=== PATIENT | male | born 1940 | race Caucasian/White ===

== ENCOUNTER 2016-08-25 10:45 | Inpatient (IN) | payer OTHER ==
[~2016-08-25] VITALS: Ht 167.6 cm; Wt 73.2 kg
[~2016-08-25 10:45] MED LIST: ADVAIR DISKUS 21 DSK INH; ALBUTEROL0.09 MG/A1 INH; ALBUTEROL2.5 MG/3 M INH/SOL; ALLOPURINOL300 MG PO; ATROVENT 0.02%2.5 ML INH; AUGMENTIN 875875 MG PO; AZITHROMYCIN250 M1 PO; BACTRIM DS 8001 TAB PO; BUFFERIN LOW DO81 MG PO; DIFLUCAN100 MG PO; DUONEB 3 MG/3 ML3 ML INH/SOL; FLOMAX(MONOGRA0.4 MG PO; FUROSEMIDE20 MG PO; GOOD SENSE ASP325 MG PO; IPRATROPIUM BR2.5 ML INH; LASIX40 M1 PO; LASIX40 MG PO; LEXAPRO20 M1 PO; LISINOPRIL10 MG PO; MELOXICAM15 MG PO; MULTIVITAMIN1 TAB PO; NYSTATIN100000 U/G TOP; OXYCODONE HCL5 M1 PO; OXYCODONE HYDRO10 M1 PO; PAXIL30 MG PO; POTASSIUM CHLO10 ME2 PO; PREDNISONE10 M2 PO; PROS5 PO; SERTRALINE HYD100 MG PO; TIZANIDINE4 MG PO; TRAZODONE HCL50 M1 PO; XALATAN 0.50 GTT/1 B OPH
--- NOTE | 2016-08-25 11:04 | ED DYSPNEA/ASTHMA COMPLAINT ---
History of Present Illness General Chief Complaint: General Adult Stated Complaint: SOB,INCONTINENCE Source: patient, family, old records Exam Limitations: no limitations Vital Signs & Intake/Output Vital Signs & Intake/Output Vital Signs Date Time Temp Pulse Resp B/P Pulse O2 O2 Flow FiO2 Ox Delivery Rate 08/29 0634 98.1 83 22 114/60 92 Nasal Cannula 08/29 0000 Nasal 3.0L Cannula 08/28 2225 97.8 90 24 120/60 94 Nasal Cannula 08/28 2114 58 96 08/28 202 92 104/60 08/28 2009 94 Nasal 2.0L Cannula 08/28 1525 97.7 90 24 100/60 97 08/28 1023 93 Nasal 2.0L Cannula ED Intake and Output 08/29 0000 08/28 1200 Intake Total 1190 120 Output Total 980 650 Balance 210 -530 Intake, Oral 1190 120 Number 1 Bowel Movements Output, Urine 980 650 Patient 216 lb Weight Allergies Coded Allergies: Tetanus Vaccines and Toxoid (ANAPHYLAXIS 07/13/16) Horse/Equine Containing Products (Mild, ANAPHYLAXIS 07/13/16) THEY USED THIS TO MAKE PCN YEARS AGO, BUT THEY DO NOT USE THIS ANYMORE. Reconcile Medications Albuterol Sulfate 2.5 MG/3 ML (0.083 %) VIAL.NEB 1 Vial INH/MELANIA TID PRN COPD (Reported) Allopurinol 300 MG TAB 1 TAB PO DAILY GOUT (Reported) Aspirin (Children's Aspirin) 81 MG TAB 1 TAB PO DAILY blood thinner Escitalopram Oxalate (Lexapro) 20 MG TABLET 1 TAB PO DAILY Depression ( Reported) Finasteride (Propecia) 5 MG TAB 5 MG PO AT BEDTIME BPH (Reported) FLUTICASONE/SALMETEROL (Advair 250-50 Diskus) 1 DSK DSK 1 PUFF INH BID COPD ( Reported) Furosemide (Lasix) 40 MG TABLET 1 TAB PO BID CHF (Reported) Meloxicam 15 MG TAB 1 TAB PO DAILY ANTI-INFLAMMATORY (Reported) Mometasone/Formoterol (Dulera 200 Mcg/5 Mcg Inhaler) 200 MCG-5 MCG/ACTUATION HFA.AER.AD 2 PUF INH BID BREATHING PROBLEMS (Reported) Multivitamin (Multiple Vitamins) (Unknown Strength) TAB 1 TAB PO DAILY SUPPLEMENT (Reported) Oxycodone HCl 5 MG TABLET 1 TAB PO Q6 PRN Back pain (Reported) Potassium Chloride [address] 20 MEQ PO DAILY SUPPLEMENT (Reported) Tamsulosin Hydrochloride (Flomax) 0.4 MG CAP 1 CAP PO AT BEDTIME PROSTATE ( Reported) Trazodone HCl 50 MG TABLET 1 TAB PO QPM PRN Insomnia (Reported) Triage Note: PT C/O PRODUCTIVE COUGH X 2 WEEKS, HX OF NON HODGKINS LYMPHOMA. PT C/O SOB AND INCONTINENCE OF URINE X 4 DAYS Triage Nurses Notes Reviewed? yes Onset: Gradual Duration: week(s): (1) Timing: recent history Severity: severe Activities at Onset: none HPI: 76 year old male with history COPD on home oxygen 2 L, afib, chf who presents to the ER with chief complaint of cough for the past week. According to his the grandchild was sick with cold and her after he developed same symptoms. No high fever or chills. No chest pain. Progressive worsening swelling of his lower extremities which started to weep this morning. He has been compliant with 40 mg of Lasix twice a day. He is urinating frequently is now incontinent of urine. She states he was too weak to go to the doctor's office and they brought him here. She states that he is also been confused seeing things that he shouldn't be. He has been noncompliant with his CPAP at night for the past few days. Past History Travel History Traveled to [place] past 21 day No Medical History Any Pertinent Medical History? see below for history Neurological: NONE EENT: glaucoma, macular degeneration Cardiovascular: AFIB, CHF, hypertension Respiratory: COPD, obstructive sleep apnea, USES CPAP Gastrointestinal: SPLENOMEGALY Hepatic: NONE Renal: NONE Musculoskeletal: sciatica, ARTHRITIS Psychiatric: NONE Endocrine: NONE Blood Disorders: NONE Cancer(s): non-hodgkin lymphoma FILM PAINTER/Reproductive: NONE History of MRSA: No History of VRE: No History of CDIFF: No Surgical History Surgical History: cholecystectomy, knee replacement, GASTRIC BYPASS SURGERY Psychosocial History Who do you live with Spouse Services at Home Oxygen What is your primary language [place] Tobacco Use: Quit >30 days ago ETOH Use: denies use Illicit Drug Use: denies illicit drug use Family History Family History, If Any: MOTHER FH: brain cancer Hx Contributory? No Review of Systems Review of Systems Constitutional: Reports: malaise, weakness. Denies: chills, fever. EENTM: Reports: no symptoms. Respiratory: Reports: cough, short of breath. Denies: sputum production. Cardiovascular: Reports: peripheral edema. Denies: chest pain. GI: Denies: abdominal pain. Genitourinary: Reports: no symptoms. Musculoskeletal: Reports: no symptoms. Skin: Reports: no symptoms. Neurological/Psychological: Reports: see HPI (hallucination x 3 weeks), anxiety. Hematologic/Endocrine: Denies: bruising, bleeding, polyuria, polydipsia. Immunologic/Allergic: Denies: splenectomy. All Other Systems: Reviewed and Negative Physical Exam Physical Exam General Appearance: alert, awake, anxious, moderate distress, thin Eyes: Bilateral: PERRL, EOMI. Ears, Nose, Throat: normal pharynx Neck: normal inspection, supple, full range of motion Respiratory: decreased breath sounds, wheezing, respiratory distress Cardiovascular: regular rate/rhythm Peripheral Pulses: 2+ radial (R), 2+ radial (L) Gastrointestinal: SOFT, SWOLLEN Extremities: 3+ BILATERAL PITTING EDEMA, WEEPING Neurologic/Psych: awake, alert, ORIENTED X 2 Skin: intact, normal color, warm/dry Core Measures ACS in differential dx? No Severe Sepsis Present: No Septic Shock Present: No Progress Differential Diagnosis: CHF, COPD, pneumonia, INFLUENZA Plan of Care: Orders Procedure Date/time Status CBC WITHOUT DIFFERENTIAL 08/29 0600 Active RT: Reevaluation 08/28 2130 Active CONTIN. POSITIVE AIRWAY PRESS 08/28 2115 Complete THERAPIST ORDERS 08/28 2009 Complete Therapeutic Exercise 08/28 UNK Complete Gait Training 08/28 UNK Complete Current Medications Sig/Sherron Start time Last Medication Dose Stop Time Status Admin Acetaminophen 650 MG Q4P PRN 08/25 1630 AC (Tylenol) Diclofenac Sodium 1 VICENTA DAILY PRN 08/25 1445 AC (Voltaren 1% Gel) Laboratory Tests 08/29/16 0653: CBC w Diff MAN DIFF ORDERED, WBC Pending, RBC Pending, Hgb Pending, Hct Pending, MCV Pending, MCH Pending, RDW Pending, Plt Count Pending, MPV Pending, Segmented Neutrophils Pending, PUBS MCHC Pending Diagnostic Imaging: Viewed by Me: Radiology Read. Discussed w/RAD: Radiology Read. CXR Impression: PATIENT: GARTH HE PRESENT AGE: 76 PATIENT ACCOUNT NO: [id number] : 41 LOCATION: [facility] ORDERING PHYSICIAN: ANAMARIA MERINO MD SERVICE DATE: 08/25/16 EXAM TYPE: RAD - XRY-PORTABLE CHEST XRAY EXAMINATION: XR PORTABLE CHEST CLINICAL INFORMATION: Cough and shortness of breath. COMPARISON: CXR from 06/14/2016 and 07/14/2016 TECHNIQUE: Portable view of the chest was obtained. FINDINGS: Again noted is a large cardiac silhouette and large central pulmonary vessels. No evidence of interlobular septal thickening, acute pulmonary consolidation or pleural effusion. There is linear opacity of scarring in the right upper lobe. Probable discoid atelectasis in the inferior lingula, as well. The diaphragms remain well defined. There is atherosclerotic calcification of the aorta. There is osteoarthritic deformity of both glenohumeral joints. IMPRESSION: 1. Cardiomegaly and pulmonary vascular congestion, similar in appearance compared to prior exams. 2. There is no overt pneumonia or pleural effusion observed on this single view exam. DICTATED BY: GE SHER MD DATE/TIME DICTATED:1140 PARTS AND SERVICE MANAGER:ULISES DATE/TIME TRANSCRIBED:08/25/161140 CONFIDENTIAL, DO NOT COPY WITHOUT APPROPRIATE AUTHORIZATION. <Electronically signed in Other Vendor System> SIGNED BY: GE SHER MD 08/25/16 1150 Initial ED EKG: NSR Rhythm Strip: normal sinus rhythm Departure Departure Time of Disposition: 1238 Disposition: STILL A PATIENT Condition: Stable Clinical Impression Primary Impression: CHF (congestive heart failure) Secondary Impressions: Dependent edema Referrals: DAYANARA LOVE DO (PCP/Family) Departure Forms: Customer Survey General Discharge Information Admission Note Spoke With: JUNO BASHIR MD Documentation of Exam: Documentation of any treatments & extenuating circumstances including Concerns Regarding Discharge (functional status, medication knowledge or non-compliance, living conditions, etc.) that warrant an admission rather than observation: [TRC /NEBS, NASAL OXYGEN, IV LASIX, CARDIOLOGY EVALUATION, MONITOR I/O, LEG ELEVATION ] Critical Care Note Critical Care Note Critical Care Time: 30-74 min
[2016-08-25] MEDS ORDERED: DULERA 200 MCG/13 GM INH (11:26)
--- NOTE | 2016-08-25 11:50 | RADIOLOGY REPORT ---
EXAMINATION: XR PORTABLE CHEST CLINICAL INFORMATION: Cough and shortness of breath. COMPARISON: CXR from 06/14/2016 and 07/14/2016 TECHNIQUE: Portable view of the chest was obtained. FINDINGS: Again noted is a large cardiac silhouette and large central pulmonary vessels. No evidence of interlobular septal thickening, acute pulmonary consolidation or pleural effusion. There is linear opacity of scarring in the right upper lobe. Probable discoid atelectasis in the inferior lingula, as well. The diaphragms remain well defined. There is atherosclerotic calcification of the aorta. There is osteoarthritic deformity of both glenohumeral joints. IMPRESSION: 1. Cardiomegaly and pulmonary vascular congestion, similar in appearance compared to prior exams. 2. There is no overt pneumonia or pleural effusion observed on this single view exam.
[2016-08-25 12:05] LABS: HEMATOCRIT 23.7 % (42-52); MEAN CORPUSCULAR HGB 31.2 PG (27.0-31.0); MEAN CORPUSCULAR HGB CONC 32.4 G/DL (33.0-37.0); MEAN CORPUSCULAR VOLUME 96.4 FL (80.0-94.0); MEAN PLATELET VOLUME 8.1 FL (7.4-10.4); RBC DISTRIBUTION WIDTH 24.4 % (11.5-14.5); RED BLOOD CELL CT 2.46 /CUMM (4.70-6.10)
[2016-08-25 12:19] LABS: PT 13.9 SEC (9.4-12.5); PTT 36 SEC (25-37)
[2016-08-25 12:49] LABS: PLATELET COUNT 68 /CUMM (130-400); WHITE BLOOD CELL COUNT 128.5 /CUMM (4.8-10.8)
--- NOTE | 2016-08-25 13:03 | History & Physical ---
MAXIMILIANO DORANTES 08/25/16 1303: General Information and HPI MD Statement: I have seen and personally examined GARTH THOMAS and documented this H&P. The patient is a 76 year old M who presented with a patient stated chief complaint of [worsening shortness of breath and swelling of bilateral lower extremities]. Source of Information: patient, family, old records Exam Limitations: no limitations History of Present Illness: Mr. 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 Presenting with (CCx) worsening dyspnea. His dyspnea is not associated with cough, but he has frequent heaves. Per , he was at his normal state of health up until 7-10 days ago, when he, supposedly, from his sick grand kid (common cold). His symptoms began with cough and increased swelling in the bilateral legs, over the span of time; he became dyspneic, worsening of [place]. Patient had recent sick contact but no travel. He reports compliance with all of his home medications. Uses his home oxygen and inhalers regularly, but for the past week he has been using his albuterol more often and his O2 demand went up to two liters. Denies fever, chills, headache, dizziness, lightheadedness, chest pain, palpitations, abdominal pain, nausea, vomiting, diarrhea and constipation. Another issue that was brought up by his was his incontinence that started about 3 days ago, patient did not develop any focal sensory or motor deficit. He has chronic pain syndrome and his pain medications were recently tailored according to his respiratory status to his current regimen. Allergies/Medications Allergies: Coded Allergies: Tetanus Vaccines and Toxoid (ANAPHYLAXIS 07/13/16) Horse/Equine Containing Products (Mild, ANAPHYLAXIS 07/13/16) THEY USED THIS TO MAKE PCN YEARS AGO, BUT THEY DO NOT USE THIS ANYMORE. Home Med list Albuterol Sulfate 2.5 MG/3 ML (0.083 %) VIAL.NEB 1 Vial INH/MELANIA TID PRN COPD (Reported) Allopurinol 300 MG TAB 1 TAB PO DAILY GOUT (Reported) Aspirin (Children's Aspirin) 81 MG TAB 1 TAB PO DAILY blood thinner Escitalopram Oxalate (Lexapro) 20 MG TABLET 1 TAB PO DAILY Depression ( Reported) Finasteride (Propecia) 5 MG TAB 5 MG PO AT BEDTIME BPH (Reported) FLUTICASONE/SALMETEROL (Advair 250-50 Diskus) 1 DSK DSK 1 PUFF INH BID COPD ( Reported) Furosemide (Lasix) 40 MG TABLET 1 TAB PO BID CHF (Reported) Meloxicam 15 MG TAB 1 TAB PO DAILY ANTI-INFLAMMATORY (Reported) Mometasone/Formoterol (Dulera 200 Mcg/5 Mcg Inhaler) 200 MCG-5 MCG/ACTUATION HFA.AER.AD 2 PUF INH BID BREATHING PROBLEMS (Reported) Multivitamin (Multiple Vitamins) (Unknown Strength) TAB 1 TAB PO DAILY SUPPLEMENT (Reported) Oxycodone HCl 5 MG TABLET 1 TAB PO Q6 PRN Back pain (Reported) Potassium Chloride [address] 20 MEQ PO DAILY SUPPLEMENT (Reported) Tamsulosin Hydrochloride (Flomax) 0.4 MG CAP 1 CAP PO AT BEDTIME PROSTATE ( Reported) Trazodone HCl 50 MG TABLET 1 TAB PO QPM PRN Insomnia (Reported) Past History Travel History Traveled to [place] past 21 day No Medical History Neurological: NONE EENT: glaucoma, macular degeneration Cardiovascular: AFIB, CHF, hypertension Respiratory: COPD, obstructive sleep apnea, USES CPAP Gastrointestinal: SPLENOMEGALY Hepatic: NONE Renal: NONE Musculoskeletal: sciatica, ARTHRITIS Psychiatric: NONE Endocrine: NONE Blood Disorders: NONE Cancer(s): non-hodgkin lymphoma 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 spouse Services at Home: Oxygen ETOH Use: denies use Illicit Drug Use: denies illicit drug use Living Will? yes Functional Ability ADLs Needs Assist: dressing, eating, toileting, bathing. Ambulation: walker IADLs Needs Assist: shopping, housework, finances, food prep, telephone, transportation, medication admin. Review of Systems Review of Systems Constitutional: Reports: see HPI, weakness. Denies: chills, diaphoresis, fever, malaise, unexplained weight loss. EENTM: Denies: blurred vision, double vision, visual changes, eye pain, eye drainage, eye tearing, icterus, ear discharge, ear pain, ear redness, hearing changes, nasal congestion, epistaxis, nasal pain, throat pain, throat swelling, mouth pain, tooth pain. Cardiovascular: Reports: see HPI, edema, orthopena, peripheral edema. Denies: chest pain, palpitations, syncope. Respiratory: Reports: cough. Denies: hemoptysis, orthopnea, short of breath, sputum production, stridor, wheezing. GI: Denies: abdominal pain, bloating, constipation, diarrhea, distention, bowel incontinence, melena, nausea, bloody stool, changes in stool, vomiting, steatorrhea. Genitourinary: Reports: see HPI. Denies: no symptoms, discharge, dysuria, frequency, hematuria , hesitation, nocturia, pain, urgency. Musculoskeletal: Reports: back pain. Skin: Reports: see HPI, change in skin color. Neurological/Psychological: Denies: anxiety, ataxia, cognitive dysfunction, confusion, depressed, dementia, emotional problems, headache, numbness, paresthesia, pre-existing deficit, petit mal seizures, tingling, tremors, tonic-clonic seizures, unable to move lower ext , unable to move upper ext, weakness, other. Hematologic/Endocrine: Denies: bruising, bleeding, polyuria, polydipsia, other. Immunologic/Allergic: Denies: splenectomy, HIV/AIDS, lymphadenopathy, other. All Other Systems: Reviewed and Negative Exam & Diagnostic Data Last 24 Hrs of Vital Signs/I&O Vital Signs Date Time Temp Pulse Resp B/P Pulse O2 O2 Flow FiO2 Ox Delivery Rate 08/25 1313 96 Nasal 2.0L Cannula 08/25 1223 98.7 64 18 137/63 93 Nasal 2.0L Cannula 08/25 1142 96 Nasal 2.0L Cannula 08/25 1108 84 110/50 08/25 1049 98.7 73 24 88/43 85 Nasal 2.0L Cannula Intake & Output 08/25 1600 08/25 0800 08/25 0000 Intake Total Output Total 1100 Balance -1100 Output, Urine 1100 Patient 234 lb Weight Physical Exam General Appearance Alert, Oriented X3, Cooperative, Mild Distress Skin No Breakdown, venous status changes in bilateral lower extremities HEENT mucous membranes are dry, JVD Neck Supple, No JVD, JVD Lymphatic Axillary nl, Cervical nl Cardiovascular No Murmurs, Gallops, irregularly irregular Lungs bibasilar crackles scattered wheezes Abdomen Soft, No Tenderness, No Hepatospenomegaly, he uses splenomegaly up to level of umbilicus Neurological Normal Speech, Normal Tone, Sensation Intact Extremities bilateral 2-3+ symmetric pitting edema low knees, venous status changes in Skin , no erythema no tenderness no warmth Vascular Normal Pulses Body Front and Back (Adult) 1) venous Status changes Last 24 Hrs of Labs/Jordi: Laboratory Tests 08/25/16 1152: Urine Color YEL, Urine Clarity CLEAR, Urine pH 6.0, Ur Specific [place] 1.015, Urine Protein NEG, Urine Ketones NEG, Urine Nitrite NEG, Urine Bilirubin NEG, Urine Urobilinogen 1.0, Ur Leukocyte Esterase NEG, Ur Microscopic SEDIMENT EXAMINED, Urine RBC RARE, Urine WBC RARE, Ur Epithelial Cells RARE, Urine Hemoglobin TRACE-LYSED H, Urine Glucose NEG 08/25/16 1144: Anion Gap 14, Estimated GFR > 60, BUN/Creatinine Ratio 36.7 H, Glucose 123 H, Calcium 8.1 L, Total Bilirubin 1.1, AST 22, ALT 22, Alkaline Phosphatase 78, Troponin I < 0.01, Ais-X-Zfzggdribgy Pept 4200 H, Total Protein 5.6 L, Albumin 2.9 L, Globulin 2.7, Albumin/Globulin Ratio 1.1, PT 13.9 H, INR 1.33 H, APTT 36, CBC w Diff MAN DIFF ORDERED, RBC 2.46 L, MCV 96.4 H, MCH 31.2 H, RDW 24.4 H, MPV 8.1, Segmented Neutrophils 3 L, Lymphocytes 93 H, Monocytes 4, Platelet Estimate DECREASED, Hypochromic-Microcytic 1+, Poikilocytosis 1+, Anisocytosis 1+, Ovalocytes 1+, PUBS MCHC 32.4 L 08/25/16 1110: pH 7.51 H, pCO2 28 L, pO2 74 L, HCO3 22, ABG O2 Sat (Measured) 93.0 L, P-50 (Temp Corrected) N, Carboxyhemoglobin 0.7 L, O2 Concentration % 2LPM, O2 Delivery Method NC, Phlebotomy Draw Site RIGHT RADIAL Microbiology 08/25 1153 BLOOD: Blood Culture - RECD 08/25 1144 BLOOD: Blood Culture - RECD Diagnostic Data EKG Results Atrial fibrillation Irregular rhythm No acute ST-T segment change Low Voltage CXR Results Cardiomegaly and pulmonary edema Assessment/Plan Assessment: 76-year-old gentleman with past medical history significant for COPD with asthmatic features and congestive heart failure was admitted for worsening dyspnea on exertion and increasing peripheral edema. Pertinent data Elevated WBC and low platelet count EKG atrial fibrillation, irregular no acute ST-T segment change first set of troponin negative ProBNP 4200 Sodium 140 potassium 3.6 BUN/creatinine ratio 36.7 sets of troponin negative hemoglobin 7.7 hematocrit 23.7 Previous echo: Left ventricle dilation with ejection fraction of 55-60% no regional wall motion abnormality right ventricle systolic pressure of 50 mm. Physical exam findings: Joce pulmonary rales and crackles, mayer peripheral edema symmetrical to level of knees and elevated JVD. Plan #1 worsening dyspnea on exertion and peripheral edema: Most probably due to congestive heart failure decompensation secondary to upper respiratory tract infection no signs of acute myocardial infarction or pneumonia. Patient also has advanced COPD with asthmatic features. Exacerbation of his COPD secondary to bronchitis possibly contributes to his cardiogenic asthma. * Admit the patient to telemetry * Strict ins and outs control * IV diuresis with Lasix 80 mg daily * Check electrolytes for renal function and potassium * Replete potassium with potassium chloride 20 mEq daily * Off antibiotics; she does not have any findings suggestive of overt infection * Trend troponin * Daily weights * Elevate lower extremities * Diet with fluid restriction 15 mL a day and sodium less than 2 g/day * Started patient on by mouth prednisone 5 mg for 5 days for COPD exacerbation * TRC/nebs [id number] as needed * O2 N/C keep O2% above 90% * Symbicort 2 puff twice a day * Proventil 3 mL 3 times a day as needed * short course steroid with prednisone 40 mg po x 5 days #2 chronic pain syndrome * Tylenol 650 mg every 6 as needed for mild pain * Roxicodone 5 mg every 6 as needed for severe pain * Voltran gel #3 gout * Allopurinol 300 mg by mouth daily #4 BPH and incontinence * Consult urology * Continue Flomax 0.4 mg by mouth at bedtime #5 leukocytosis and thrombocytopenia-in the setting of pericellular leukemia stable #6 atrial fibrillation not on anticoagulation-continue aspirin As Ranked By This Provider Problem List: 1. Dependent edema 2. CHF (congestive heart failure) 3. COPD (chronic obstructive pulmonary disease) 4. Dyspnea 5. CLL (chronic lymphocytic leukemia) 6. BPH (benign prostatic hyperplasia) 7. Edema of left lower extremity 8. Leukocytosis Core Measures/Miscellaneous Acute Coronary Syndrome ACS Diagnosis: No Last Known EF % 55 Cerebrovascular Accident CVA/TIA Diagnosis: No Congestive Heart Failure CHF Diagnosis: Yes Date of most recent Echo: 08/16/15 Last Known EF %: 55 ANTONIO/ARB for EF <40%: No Venous Thromboembolism VTE Risk Factors: Acute medical illness, Age > 40, CHF or Resp failure, Immobility, paresis VTE Prophylaxis Ordered Inpt: Mechanical (ALPS/TEDS) No Mech VTE prophylaxis d/t: LE Edema No VTE Pharm Prophylaxis d/t: No contraindications VTE Diagnosis: No VTE Type: NONE VTE Confirmed by (Test): NONE Severe Sepsis Severe Sepsis Present: No Septic Shock Septic Shock Present: No Miscellaneous Documentation Attending Case Discussed With: HARDEEP CHAUHAN MD Primary Care Physician: DAYANARA LOVE DO Patient sees these Specialists corporate scheduler bioengineer Level of Patient Care: Telemetry Resident Review Statement Resident Statement: examined this patient, discussed with sports intern, agreed with sports intern, discussed with family, reviewed EMR data (avail), discussed with nursing , discussed with case mgmt, reviewed images, amended to note HARDEEP CHAUHAN MD 08/25/16 1521: Attending MD Review Statement Attending Statement Attending MD Statement: examined this patient, discuss w/resident/PA/TELESALES TEAM LEADER, agreed w/resident/PA/TELESALES TEAM LEADER, reviewed EMR data (avail), discussed with nursing, discussed with case mgmt Attending Assessment/Plan: 76-year-old male with chronic respiratory failure, COPD on home oxygen and chronic diastolic heart failure, 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 He is here with what sounds like an acute CHF exacerbation. His legs are very swollen and weeping . And he is short of breath. He feels like all of his symptoms got exacerbated with a sick contact ( he was around a sick grandson). His flu swab is negative, chest x-ray is negative for pneumonia and that doesn't appear to be any evidence of active infection. He was recently here in July discharged on a prednisone taper and azithromycin. For now we'll give him Lasix 40 IV twice a day. He had an echo in June 2016, I don't think it needs to be repeated. Will have Dr Gilma Gomez, his usual corporate scheduler see him. I don't think this is a florid COPD exacerbation but will give him the benefit of doubt with 5 days of by mouth prednisone at 40 mg a day. He doesn't need antibiotics. We'll put him on Alps for DVT prophylaxis, continue his BPH meds of tamsulosin and finasteride and follow closely.
--- NOTE | 2016-08-25 15:19 | Admission Certification ---
Admission Certification Certification Statement - As attending physician, I certify that at the time of - admission, based on clinical presentation, severity of - symptoms, need for further diagnostic testing and - therapeutic interventions, and risk of adverse outcomes - without in-hospital treatment, in my clinical assessment, - this patient requires an acute hospital stay for a minimum - of two nights or longer. I have also considered psychsocial - factors such as support system, advanced age, financial - issues, cognitive issues, and failed out-patient treatments, - past re-admission history, safety of patient, and lack of - compliance as applicable. Specific rationale supporting this admission is: Acute CHF exacerbation needs IV Lasix.
[2016-08-25 16:59] VITALS: BP 118/70
[2016-08-25 21:09] VITALS: BP 130/60
[2016-08-26 00:15] VITALS: BP 110/60
--- NOTE | 2016-08-26 05:18 | Event Note ---
Event Note Event Note: Pt was noted to be saturating at 80% on 2L NC. Vitals obtained at the moment: BP 130/60, HR:70. On Physical examination: Pt was AOx3, NAD, Resp: Bibasilar crackles. CV:non remarkable. He denied any chest or pleuritic pain. Pt O2 supplementation was increased to 5L NC with 02 Levels improving but not over 88%. 50% Venti mask was then placed acheiving saturation levels of 95%. ABGs were obtained with the following findings: 7.49/37/88/27. Plan Pt was admitted today in the afternoon for symptoms of worsening dyspnea 2/2 to decompensated CHF. Already received Lasix 40MG IV, trended trops/EKG were not showing and signs of evolving ACS, and ABG were unremarkable for any worsening respiratory status. At this time, no other intervention was warranted other than 02 supplementation. Per respiratory team, patient is supposed to be on notrunal cpap (12), but never was compliant. Patient was then put on CPAP after agreeing.
--- NOTE | 2016-08-26 07:25 | PN- Housestaff ---
MAXIMILIANO DORANTES 08/26/16 0724: Subjective Follow-up For: chf decompensation COPD and asthma overlap syndrome Complaints: patient complains of this dyspnea on exertion And bilateral swelling of his lower extremities Tele-Events Since Last Visit: 24-hour telemetry was reviewed Atrial fibrillation with PVCs and trigeminy Rate: Low 60s to low 70s No pauses and no acute ST-T segment change Subjective: Patient was visited and interviewed this morning. Is complaining of the dyspnea, particularly on exertion. Desaturated over night and O2 was increased to 4 L nasal cannula. Vital signs remained stable, otherwise. Fluid balance: -1965 mL Review of Systems Constitutional: Denies: chills, diaphoresis, fever, malaise, weakness, unexplained weight loss. Cardiovascular: Reports: edema, orthopena, peripheral edema. Denies: chest pain, palpitations, syncope. Respiratory: Reports: cough, orthopnea, short of breath. Denies: sputum production, stridor, wheezing. Gastrointestinal: Reports: abdominal pain. Denies: bloating, constipation, diarrhea, distention, bowel incontinence, melena, nausea, bloody stool, changes in stool, vomiting, steatorrhea. Genitourinary: Reports: see HPI. Denies: discharge, dysuria, frequency, hematuria, hesitation, nocturia, pain, urgency. Musculoskeletal: Denies: back pain, gout, joint pain, joint swelling, muscle pain, muscle stiffness, neck pain. Skin: Denies: cysts, change in skin color, change in hair/nails, dryness, erythema, jaundice, lesions, lymphangitis, lumps, moles, rash. Neurological/Psychological: Denies: anxiety, ataxia, cognitive dysfunction, confusion, depressed, dementia, emotional problems, headache, numbness, paresthesia, pre-existing deficit, petit mal seizures, tingling, tremors, tonic-clonic seizures, unable to move lower ext , unable to move upper ext, weakness, other. Objective Last 24 Hrs of Vital Signs/I&O Vital Signs Date Time Temp Pulse Resp B/P Pulse O2 O2 Flow FiO2 Ox Delivery Rate 08/26 0600 59 97 08/26 0041 70 94 08/26 0015 97.6 73 18 110/60 96 Venti Mask 50% 08/26 0000 95 Venti Mask 50% 08/25 2210 61 130/60 08/25 2109 61 18 130/60 08/25 2037 Nasal 4.0L Cannula 08/25 1999 Nasal 2.0L Cannula 08/25 165 97.4 57 20 118/70 100 Nasal 2.0L Cannula 08/25 1658 95 Nasal 2.0L Cannula 08/25 1612 68 16 102/60 97 Nasal 2.0L Cannula 08/25 1454 98.5 62 2 109/54 95 Nasal 2.0L Cannula 08/25 1313 96 Nasal 2.0L Cannula 08/25 1223 98.7 64 18 137/63 93 Nasal 2.0L Cannula 08/25 1142 96 Nasal 2.0L Cannula 08/25 1108 84 110/50 08/25 1049 98.7 73 24 88/43 85 Nasal 2.0L Cannula Intake & Output 08/26 1600 08/26 0800 08/26 0000 Intake Total 120 Output Total 400 735 Balance -400 -615 Intake, Oral 120 Output, Urine 400 735 Patient 218 lb 224 lb Weight Physical Exam General Appearance: Alert, Oriented X3, Cooperative, Moderate Distress Skin: No Rashes, No Breakdown, No Significant Lesion HEENT: mocous membranes are dry Neck: JVD Lymphatic: Axillary nl, Cervical nl Cardiovascular: irregularly irregular, ???loud S2, no murmur; no no thrill thrill, PMI displaced to the left Lungs: prolonged expiratory wheeze, bibasilar crackles Abdomen: firm, he uses splenomegaly;down to umbilicus, no guarding no rebound or tenderness Neurological: Normal Tone, sleepy and tired otherwise alert and oriented to time place and person Extremities: bilateral 2+ pitting pedal edema below knees, no central peripheral cyanosis Vascular: Normal Pulses, Pulses Symmetrical Current Medications: Current Medications Sig/Sherron Start time Last Medication Dose Route Stop Time Status Admin Acetaminophen 650 MG Q4P PRN 08/25 1630 AC PO Acetaminophen 650 MG Q6P PRN 08/25 1400 DC PO Albuterol Sulfate 3 ML BID 08/25 220 AC 08/25 INH 2054 Albuterol Sulfate 3 ML TID PRN 08/25 1400 AC INH Albuterol Sulfate 3 ML ONCE ONE 08/25 1115 DC 08/25 INH 08/25 1116 1115 Allopurinol 300 MG DAILY 08/25 1355 AC 08/25 PO 1433 Aspirin 81 MG DAILY 08/26 1000 AC PO Budesonide/ 2 PUF BID 08/25 1356 AC 08/25 Formoterol Fumarate INH 2214 Diclofenac Sodium 1 VICENTA DAILY PRN 08/25 1445 AC TOP Escitalopram Oxalate 20 MG DAILY 08/25 1355 AC 08/25 PO 1433 Finasteride 5 MG AT BEDTIME 08/25 2200 AC 08/25 PO 2210 Furosemide 40 MG 7:30 AM, & 4:30 PM 08/25 1630 AC 08/26 IV 0606 Furosemide 0 .STK-MED ONE 08/25 1138 DC IV Furosemide 40 MG ONCE ONE 08/25 1130 DC 08/25 IV 08/25 1131 1143 Ipratropium Cando 2.5 ML ONCE ONE 08/25 1115 DC 08/25 INH 08/25 1116 1115 Multivitamins 1 TAB DAILY 08/25 1357 AC 08/25 PO 1433 Nystatin 1 VICENTA TID 08/26 0206 AC TOP Nystatin 1 VICENTA BID PRN 08/25 1800 DC TOP Oxycodone HCl 5 MG Q6P PRN 08/25 1400 AC PO Polyethylene Glycol 17 GM DAILY PRN 08/25 1415 AC PO Potassium Chloride 20 MEQ DAILY 08/25 1357 AC 08/25 PO 1433 Prednisone 5 MG DAILY 08/26 1000 DC PO 08/29 2300 Prednisone 40 MG DAILY 08/26 1000 AC PO Tamsulosin HCl 0.4 MG AT BEDTIME 08/25 2200 AC 08/25 PO 2210 Trazodone HCl 50 MG QPM PRN 08/25 1400 AC 08/26 PO 0020 Last 24 Hrs of Lab/Jordi Results Last 24 Hrs of Labs/Mics: Laboratory Tests 08/26/16 0700: Sodium Pending, Potassium Pending, Chloride Pending, Carbon Dioxide Pending, Anion Gap Pending, BUN Pending, Creatinine Pending, BUN/Creatinine Ratio Pending , CBC w Diff Pending, WBC Pending, RBC Pending, Hgb Pending, Hct Pending, MCV Pending, MCH Pending, RDW Pending, Plt Count Pending, MPV Pending, PUBS MCHC Pending 08/26/16 0155: Troponin I < 0.01 08/25/16 2115: pH 7.49 H, pCO2 37, pO2 88, HCO3 27, ABG O2 Sat (Measured) 95.0 L, Carboxyhemoglobin 0.8 L, O2 Concentration % 50%, O2 Delivery Method V/M, Phlebotomy Draw Site RIGHT RADIAL 08/25/16 1830: Troponin I 0.02 08/25/16 1152: Urine Color YEL, Urine Clarity CLEAR, Urine pH 6.0, Ur Specific [place] 1.015, Urine Protein NEG, Urine Ketones NEG, Urine Nitrite NEG, Urine Bilirubin NEG, Urine Urobilinogen 1.0, Ur Leukocyte Esterase NEG, Ur Microscopic SEDIMENT EXAMINED, Urine RBC RARE, Urine WBC RARE, Ur Epithelial Cells RARE, Urine Hemoglobin TRACE-LYSED H, Urine Glucose NEG 08/25/16 1144: Anion Gap 14, Estimated GFR > 60, BUN/Creatinine Ratio 36.7 H, Glucose 123 H, Calcium 8.1 L, Total Bilirubin 1.1, AST 22, ALT 22, Alkaline Phosphatase 78, Troponin I < 0.01, Sqf-W-Umfdcnvohvv Pept 4200 H, Total Protein 5.6 L, Albumin 2.9 L, Globulin 2.7, Albumin/Globulin Ratio 1.1, PT 13.9 H, INR 1.33 H, APTT 36, CBC w Diff MAN DIFF ORDERED, RBC 2.46 L, MCV 96.4 H, MCH 31.2 H, RDW 24.4 H, MPV 8.1, Segmented Neutrophils 3 L, Lymphocytes 93 H, Monocytes 4, Platelet Estimate DECREASED, Hypochromic-Microcytic 1+, Poikilocytosis 1+, Anisocytosis 1+, Ovalocytes 1+, PUBS MCHC 32.4 L 08/25/16 1110: pH 7.51 H, pCO2 28 L, pO2 74 L, HCO3 22, ABG O2 Sat (Measured) 93.0 L, P-50 (Temp Corrected) N, Carboxyhemoglobin 0.7 L, O2 Concentration % 2LPM, O2 Delivery Method NC, Phlebotomy Draw Site RIGHT RADIAL Microbiology 08/25 1153 BLOOD: Blood Culture - RECD 08/25 1144 BLOOD: Blood Culture - RECD Lines/Diet/Fluids Catheters/Tubes: none Assessment/Plan Assessment: 76-year-old gentleman with past medical history significant for 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 Plan #1 worsening dyspnea on exertion and peripheral edema: Mostly due to CHF exacerbation (evident by elevated JVD and pulmonary congestion and peripheral edema and elevated proBNP) with some elements of COPD and asthma overlap syndrome exacerbation. His Hgb and Hct is low that could worsen his cardiac out put. * Keep the patient on telemetry * Strict ins and outs control; maintain negative fluid balance * IV diuresis with Lasix 40 mg twice a day * Check electrolytes for renal function and potassium * Replete potassium with potassium chloride 20 mEq daily * Daily weights, heart healthy diet with restricted salt intake, fluid restriction of 15-1800 mL; elevate lower extremities * No need for new echo * Follow cardiology recommendation * Off antibiotics; she does not have any findings suggestive of overt infection * A short course of oral prednisone 40 mg by mouth daily for 5 days * O2 NC as tolerated; keep O2 sat above 90% * TRC/nebs [id number]-[id number] as needed * Symbicort 2 puff twice a day * Proventil 3 mL 3 times a day as needed * short course steroid with prednisone 40 mg po x 5 days * Repeat Xray * Inform Dr. Nolen * Transfuse 1 Unit of blood after type and cross match * Target Hgb is >8 mg/dl * check CBC 2 hours after transfusion is over * In case of worsening respiratory status watch for the sings of overload and give extra dose of lasix if it was necessary * Follow Hem/oncology recommendation #2 chronic pain syndrome * Tylenol 650 mg every 6 as needed for mild pain * Roxicodone 5 mg every 6 as needed for severe pain * Voltran gel #3 gout Allopurinol 300 mg by mouth daily #4 BPH and incontinence * Continue Flomax 0.4 mg by mouth at bedtime * Continue finasteride 5 mg by mouth at bedtime #5 leukocytosis and thrombocytopenia-in the setting of pericellular leukemia- stable #6 atrial fibrillation not on anticoagulation-continue aspirin #7 hypokalemia: Continue supplementation with potassium chloride 20 mEq daily Problem List: 1. Dyspnea 2. COPD (chronic obstructive pulmonary disease) 3. CHF (congestive heart failure) 4. Dependent edema 5. BPH (benign prostatic hyperplasia) Pain Ratin Pain Location: Lower back Pain Goal: Pain 4 or less Pain Plan: Roxycodone and Tylenol Tomorrow's Labs & Rationales: BEP Patient is hypokalemic and he is on IV Lasix diuresis watchful for acute renal failure and electrolyte imbalance DVT/Prophylaxis: mechanical GISSEL BRIGHT,HARDEEP 08/26/16 1139: Attending MD Review Statement Attending Statement Attending MD Statement: examined this patient, discuss w/resident/PA/COMPLIANCE ENGINEER, agreed w/resident/PA/COMPLIANCE ENGINEER, reviewed EMR data (avail), discussed with nursing, discussed with case mgmt Attending Assessment/Plan: Events overnight noted. Patient had an episode of desaturation and another blood gas was checked. He is now on 4 L. Is a 76-year-old male with a history of hairy cell leukemia with lymphocytosis, anemia and thrombocytopenia and chronic diastolic heart failure is here with an exacerbation of heart failure. Appreciate pulmonary eval who feels there is no component of COPD and will stop the steroids. I spoke to Dr. Burk over the phone and he will come to see him officially but he agrees with 1 unit of blood slowly and IV Lasix after that if needed. Dr. Gomez said we can safely stop the laboratory monitor and watch his I's and O's closely.
[2016-08-26 08:02] LABS: HEMATOCRIT 23.3 % (42-52); MEAN CORPUSCULAR HGB 31.1 PG (27.0-31.0); MEAN CORPUSCULAR HGB CONC 32.2 G/DL (33.0-37.0); MEAN CORPUSCULAR VOLUME 96.4 FL (80.0-94.0); MEAN PLATELET VOLUME 7.8 FL (7.4-10.4); RBC DISTRIBUTION WIDTH 24.4 % (11.5-14.5); RED BLOOD CELL CT 2.42 /CUMM (4.70-6.10)
[2016-08-26 08:32] LABS: WHITE BLOOD CELL COUNT 127.4 /CUMM (4.8-10.8)
[2016-08-26 08:35] VITALS: BP 130/68
--- NOTE | 2016-08-26 08:43 | Cons- Pulmonary ---
General Information and HPI Consulting Request Date of Consult: 08/26/16 Requested By: saul Reason for Consult: Shortness of breath History of Present Illness: Patient is 76-year-old with history of congestive heart failure and her recent leukemia COPD admitted with increasing shortness breath associated with cough progressive weight gain and lower extremity edema. On presentation his chest x- ray shows an to be in congestive heart failure and he is significantly more anemic. He's had no chest pain. He has cough nonproductive without sputum. He is diuresed approximately 2500 mL and feels improved. Allergies/Medications Allergies: Coded Allergies: Tetanus Vaccines and Toxoid (ANAPHYLAXIS 07/13/16) Horse/Equine Containing Products (Mild, ANAPHYLAXIS 07/13/16) THEY USED THIS TO MAKE PCN YEARS AGO, BUT THEY DO NOT USE THIS ANYMORE. Home Med List: Albuterol Sulfate 2.5 MG/3 ML (0.083 %) VIAL.NEB 1 Vial INH/MELANIA TID PRN COPD (Reported) Allopurinol 300 MG TAB 1 TAB PO DAILY GOUT (Reported) Aspirin (Children's Aspirin) 81 MG TAB 1 TAB PO DAILY blood thinner Escitalopram Oxalate (Lexapro) 20 MG TABLET 1 TAB PO DAILY Depression ( Reported) Finasteride (Propecia) 5 MG TAB 5 MG PO AT BEDTIME BPH (Reported) FLUTICASONE/SALMETEROL (Advair 250-50 Diskus) 1 DSK DSK 1 PUFF INH BID COPD ( Reported) Furosemide (Lasix) 40 MG TABLET 1 TAB PO BID CHF (Reported) Meloxicam 15 MG TAB 1 TAB PO DAILY ANTI-INFLAMMATORY (Reported) Mometasone/Formoterol (Dulera 200 Mcg/5 Mcg Inhaler) 200 MCG-5 MCG/ACTUATION HFA.AER.AD 2 PUF INH BID BREATHING PROBLEMS (Reported) Multivitamin (Multiple Vitamins) (Unknown Strength) TAB 1 TAB PO DAILY SUPPLEMENT (Reported) Oxycodone HCl 5 MG TABLET 1 TAB PO Q6 PRN Back pain (Reported) Potassium Chloride [address] MEQ PO DAILY SUPPLEMENT (Reported) Tamsulosin Hydrochloride (Flomax) 0.4 MG CAP 1 CAP PO AT BEDTIME PROSTATE ( Reported) Trazodone HCl 50 MG TABLET 1 TAB PO QPM PRN Insomnia (Reported) Review of Systems Review of Systems Constitutional: Denies: chills, fever. Cardiovascular: Reports: edema, peripheral edema. Denies: chest pain. Respiratory: Reports: cough, orthopnea, short of breath. Denies: hemoptysis, sputum production. GI: Denies: abdominal pain, diarrhea, melena. Past History Travel History Traveled to [place] past 21 day No Medical History Blood Transfusion Hx: No Neurological: NONE EENT: glaucoma, macular degeneration Cardiovascular: AFIB, CHF, hypertension Respiratory: COPD, obstructive sleep apnea, USES CPAP Gastrointestinal: SPLENOMEGALY Hepatic: NONE Renal: NONE Musculoskeletal: sciatica, ARTHRITIS Psychiatric: NONE Endocrine: NONE Blood Disorders: NONE Cancer(s): non-hodgkin lymphoma TOOL ENGINEER/Reproductive: NONE Surgical History Surgical History: cholecystectomy, knee replacement, GASTRIC BYPASS SURGERY Family History Relations & Conditions If Any: MOTHER FH: brain cancer Psychosocial History Where Do You Live? Home Who Do You Live With? spouse Services at Home: Oxygen Smoking Status: Former Smoker ETOH Use: denies use Illicit Drug Use: denies illicit drug use Living Will? yes Functional Ability ADLs Needs Assist: dressing, eating, toileting, bathing. Ambulation: walker IADLs Needs Assist: shopping, housework, finances, food prep, telephone, transportation, medication admin. Exam & Diagnostic Data Last 24 Hrs of Vital Signs/I&O Vital Signs Date Time Temp Pulse Resp B/P Pulse O2 O2 Flow FiO2 Ox Delivery Rate 08/26 0835 98.0 66 20 130/68 93 Nasal 6.0L Cannula 08/26 0600 59 97 08/26 0041 70 94 08/26 0015 97.6 73 18 110/60 96 Venti Mask 50% 08/26 0000 95 Venti Mask 50% 08/25 2210 61 130/60 08/25 2109 61 18 130/60 08/25 2038 Nasal 4.0L Cannula 08/25 2000 Nasal 2.0L Cannula 08/25 1659 97.4 57 20 118/70 100 Nasal 2.0L Cannula 08/25 1658 95 Nasal 2.0L Cannula 08/25 1612 68 16 102/60 97 Nasal 2.0L Cannula 08/25 1454 98.5 62 2 109/54 95 Nasal 2.0L Cannula 08/25 1313 96 Nasal 2.0L Cannula 08/25 1223 98.7 64 18 137/63 93 Nasal 2.0L Cannula 08/25 1142 96 Nasal 2.0L Cannula 08/25 1108 84 110/50 08/25 1049 98.7 73 24 88/43 85 Nasal 2.0L Cannula Intake & Output 08/26 1600 08/26 0800 08/26 0000 Intake Total 120 Output Total 400 735 Balance -400 -615 Intake, Oral 120 Output, Urine 400 735 Patient 218 lb 224 lb Weight Oxygen saturation on 6 L is 93% HEENT exam shows no jugular venous distention exam of his chest shows bilateral crackles there are no wheezes cardiac exam shows an irregular rhythm, exam is soft nontender extremities have symmetrical 3 + edema Last 48 Hrs of Labs/Jordi: Laboratory Tests 08/26/16 0700: Anion Gap 13, Estimated GFR > 60, BUN/Creatinine Ratio 33.3 H, CBC w Diff MAN DIFF ORDERED, WBC Pending, RBC Pending, Hgb Pending, Hct Pending, MCV Pending, MCH Pending, RDW Pending, Plt Count Pending, MPV Pending, Gran % Pending, Lymphocytes % Pending, Monocytes % Pending, Eosinophils % Pending, Basophils % Pending, Absolute Granulocytes Pending, Segmented Neutrophils Pending, Absolute Lymphocytes Pending, Absolute Monocytes Pending, Absolute Eosinophils Pending, Absolute Basophils Pending, PUBS MCHC Pending 08/26/16 0155: Troponin I < 0.01 08/25/16 2115: pH 7.49 H, pCO2 37, pO2 88, HCO3 27, ABG O2 Sat (Measured) 95.0 L, Carboxyhemoglobin 0.8 L, O2 Concentration % 50%, O2 Delivery Method V/M, Phlebotomy Draw Site RIGHT RADIAL 08/25/16 1830: Troponin I 0.02 08/25/16 1152: Urine Color YEL, Urine Clarity CLEAR, Urine pH 6.0, Ur Specific [place] 1.015, Urine Protein NEG, Urine Ketones NEG, Urine Nitrite NEG, Urine Bilirubin NEG, Urine Urobilinogen 1.0, Ur Leukocyte Esterase NEG, Ur Microscopic SEDIMENT EXAMINED, Urine RBC RARE, Urine WBC RARE, Ur Epithelial Cells RARE, Urine Hemoglobin TRACE-LYSED H, Urine Glucose NEG 08/25/16 1144: Anion Gap 14, Estimated GFR > 60, BUN/Creatinine Ratio 36.7 H, Glucose 123 H, Calcium 8.1 L, Total Bilirubin 1.1, AST 22, ALT 22, Alkaline Phosphatase 78, Troponin I < 0.01, Ubr-S-Iqcxxzzyorx Pept 4200 H, Total Protein 5.6 L, Albumin 2.9 L, Globulin 2.7, Albumin/Globulin Ratio 1.1, PT 13.9 H, INR 1.33 H, APTT 36, CBC w Diff MAN DIFF ORDERED, RBC 2.46 L, MCV 96.4 H, MCH 31.2 H, RDW 24.4 H, MPV 8.1, Segmented Neutrophils 3 L, Lymphocytes 93 H, Monocytes 4, Platelet Estimate DECREASED, Hypochromic-Microcytic 1+, Poikilocytosis 1+, Anisocytosis 1+, Ovalocytes 1+, PUBS MCHC 32.4 L 08/25/16 1110: pH 7.51 H, pCO2 28 L, pO2 74 L, HCO3 22, ABG O2 Sat (Measured) 93.0 L, P-50 (Temp Corrected) N, Carboxyhemoglobin 0.7 L, O2 Concentration % 2LPM, O2 Delivery Method NC, Phlebotomy Draw Site RIGHT RADIAL Assessment/Plan Impression/Plan: 76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 There may be a component of high output failure as he is significantly more anemic. Recommendations: Taper FiO2 his saturations allow. Continue negative fluid balance leg elevation. Oncology evaluation for leukocytosis anemia and thrombocytopenia and consideration for transfusion. There is no need for steroids or antibiotics at this time. Obtain sputum C&S and assess quick flu Consult Acknowledgment - Thank you for your consult request.
[2016-08-26 09:09] LABS: PLATELET COUNT 69 /CUMM (130-400)
--- NOTE | 2016-08-26 10:22 | RADIOLOGY REPORT ---
EXAMINATION: XR PORTABLE CHEST CLINICAL INFORMATION: Worsening hypoxia. COMPARISON: Several prior chest x-rays, most recent of which is dated 08/25/2016. TECHNIQUE: AP semierect portable view of the chest was obtained. FINDINGS: The cardiomediastinal silhouette and central pulmonary vessels are again found to be enlarged, unchanged. Lungs bilaterally are symmetrically expanded and demonstrate central vascular congestion. There is some linear subsegmental atelectasis in the right midlung and in both lower lobes. No significant pleural effusion. No dense consolidation or evidence of pulmonary edema. Skinfold produces a pseudo pleural line in the left lung. No pneumothorax. Moderate degenerative changes in both shoulder joints. IMPRESSION: 1. Unchanged appearance of the chest with areas of subsegmental atelectasis in the right midlung in both lung bases. 2. No evidence of pulmonary edema or focal pneumonia or effusion.
--- NOTE | 2016-08-26 10:32 | Cons- Cardiology ---
General Information and HPI Consulting Request Date of Consult: 08/26/16 Requested By: HARDEEP CHAUHAN MD Reason for Consult: Recurrent right sided congestive heart failure Source of Information: patient, old records Exam Limitations: no limitations History of Present Illness: Mr. Thomas is a 76-year-old man with chronic atrial fibrillation not on anticoagulation. He has also underlying chronic hematologic malignancy, hairy cell leukemia. He was hospitalized in June for congestive heart failure and then hospitalized again on 07/13/2016 with worsening dyspnea on exertion, sputum production, and increasing ankle edema. He was treated with IV diuretics and antibiotics, and he was supposed to be discharged on Lasix 40 mg twice daily. He was also treated for exacerbation of COPD. Unfortunately at home only was taking Lasix 40 mg once a day for uncertain reasons. I saw him in the office in early July and increased his Lasix to 40 mg twice daily. The patient now presents with dizziness, weakness, increased edema and shortness of breath. He has no complaints of chest pain. He denies palpitations. He claims compliance to his medications. He was found to be moderately anemic and his white count is higher than it has been. He has received intermittent chemotherapy for his leukemia. He has persistent splenomegaly which is uncomfortable for him. Allergies/Medications Allergies: Coded Allergies: Tetanus Vaccines and Toxoid (ANAPHYLAXIS 07/13/16) Horse/Equine Containing Products (Mild, ANAPHYLAXIS 07/13/16) THEY USED THIS TO MAKE PCN YEARS AGO, BUT THEY DO NOT USE THIS ANYMORE. Home Med List: Albuterol Sulfate 2.5 MG/3 ML (0.083 %) VIAL.NEB 1 Vial INH/MELANIA TID PRN COPD (Reported) Allopurinol 300 MG TAB 1 TAB PO DAILY GOUT (Reported) Aspirin (Children's Aspirin) 81 MG TAB 1 TAB PO DAILY blood thinner Escitalopram Oxalate (Lexapro) 20 MG TABLET 1 TAB PO DAILY Depression ( Reported) Finasteride (Propecia) 5 MG TAB 5 MG PO AT BEDTIME BPH (Reported) FLUTICASONE/SALMETEROL (Advair 250-50 Diskus) 1 DSK DSK 1 PUFF INH BID COPD ( Reported) Furosemide (Lasix) 40 MG TABLET 1 TAB PO BID CHF (Reported) Meloxicam 15 MG TAB 1 TAB PO DAILY ANTI-INFLAMMATORY (Reported) Mometasone/Formoterol (Dulera 200 Mcg/5 Mcg Inhaler) 200 MCG-5 MCG/ACTUATION HFA.AER.AD 2 PUF INH BID BREATHING PROBLEMS (Reported) Multivitamin (Multiple Vitamins) (Unknown Strength) TAB 1 TAB PO DAILY SUPPLEMENT (Reported) Oxycodone HCl 5 MG TABLET 1 TAB PO Q6 PRN Back pain (Reported) Potassium Chloride [address] 20 MEQ PO DAILY SUPPLEMENT (Reported) Tamsulosin Hydrochloride (Flomax) 0.4 MG CAP 1 CAP PO AT BEDTIME PROSTATE ( Reported) Trazodone HCl 50 MG TABLET 1 TAB PO QPM PRN Insomnia (Reported) Current Medications: Current Medications Sig/Sherron Start time Last Medication Dose Route Stop Time Status Admin Acetaminophen 650 MG Q4P PRN 08/25 1630 AC PO Acetaminophen 650 MG Q6P PRN 08/25 1400 DC PO Albuterol Sulfate 3 ML BID 08/25 2200 AC 08/25 INH 2055 Albuterol Sulfate 3 ML TID PRN 08/25 1400 AC INH Albuterol Sulfate 3 ML ONCE ONE 08/25 1115 DC 08/25 INH 08/25 1116 1115 Allopurinol 300 MG DAILY 08/25 1355 AC 08/25 PO 1433 Aspirin 81 MG DAILY 08/26 1000 AC PO Budesonide/ 2 PUF BID 08/25 1356 AC 08/25 Formoterol Fumarate INH 2214 Diclofenac Sodium 1 VICENTA DAILY PRN 08/25 1445 AC TOP Escitalopram Oxalate 20 MG DAILY 08/25 1355 AC 08/25 PO 1433 Finasteride 5 MG AT BEDTIME 08/25 2200 AC 08/25 PO 2210 Furosemide 40 MG 7:30 AM, & 4:30 PM 08/25 1630 AC 08/26 IV 0606 Furosemide 0 .STK-MED ONE 08/25 1138 DC IV Furosemide 40 MG ONCE ONE 08/25 1130 DC 08/25 IV 08/25 1131 1143 Ipratropium Mineral 2.5 ML ONCE ONE 08/25 1115 DC 08/25 INH 08/25 1116 1115 Multivitamins 1 TAB DAILY 08/25 1357 AC 08/25 PO 1433 Nystatin 1 VICENTA TID 08/26 0206 AC TOP Nystatin 1 VICENTA BID PRN 08/25 1800 DC TOP Oxycodone HCl 5 MG Q6P PRN 08/25 1400 AC PO Polyethylene Glycol 17 GM DAILY PRN 08/25 1415 AC PO Potassium Chloride 20 MEQ BID 08/26 1000 AC PO Potassium Chloride 20 MEQ DAILY 08/25 1357 DC 08/25 PO 1433 Prednisone 5 MG DAILY 08/26 1000 DC PO 08/29 2300 Prednisone 40 MG DAILY 08/26 1000 AC PO Tamsulosin HCl 0.4 MG AT BEDTIME 08/25 2200 AC 08/25 PO 2210 Trazodone HCl 50 MG QPM PRN 08/25 1400 AC 08/26 PO 0020 Review of Systems Review of Systems: He has no other complaints in the review of systems Past History Travel History Traveled to [place] past 21 day No Medical History Blood Transfusion Hx: No Neurological: NONE EENT: glaucoma, macular degeneration Cardiovascular: AFIB, CHF, hypertension Respiratory: COPD, obstructive sleep apnea, USES CPAP Gastrointestinal: SPLENOMEGALY Hepatic: NONE Renal: NONE Musculoskeletal: sciatica, ARTHRITIS Psychiatric: NONE Endocrine: NONE Blood Disorders: NONE Cancer(s): non-hodgkin lymphoma 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 Home Who Do You Live With? spouse Services at Home: Oxygen Smoking Status: Former Smoker ETOH Use: denies use Illicit Drug Use: denies illicit drug use Living Will? yes Functional Ability ADLs Needs Assist: dressing, eating, toileting, bathing. Ambulation: walker IADLs Needs Assist: shopping, housework, finances, food prep, telephone, transportation, medication admin. Exam & Diagnostic Data Vital Signs and I&O Vital Signs Date Time Temp Pulse Resp B/P Pulse O2 O2 Flow FiO2 Ox Delivery Rate 08/26 0835 98.0 66 20 130/68 93 Nasal 6.0L Cannula 08/26 0600 59 97 08/26 0041 70 94 08/26 0015 97.6 73 18 110/60 96 Venti Mask 50% 08/26 0000 95 Venti Mask 50% 08/250 61 130/60 08/25 2108 61 18 130/60 08/25 2037 Nasal 4.0L Cannula 08/25 1999 Nasal 2.0L Cannula 08/25 1658 97.4 57 20 118/70 100 Nasal 2.0L Cannula 08/25 1658 95 Nasal 2.0L Cannula 08/25 1612 68 16 102/60 97 Nasal 2.0L Cannula 08/25 1454 98.5 62 2 109/54 95 Nasal 2.0L Cannula 08/25 1313 96 Nasal 2.0L Cannula 08/25 1223 98.7 64 18 137/63 93 Nasal 2.0L Cannula 08/25 1142 96 Nasal 2.0L Cannula 08/25 1108 84 110/50 08/25 1049 98.7 73 24 88/43 85 Nasal 2.0L Cannula Intake & Output 08/26 0000 08/25 1600 08/25 0808/25 0000 Intake Total 120 Output Total 171 813 5550 Balance -400 -615 -1350 Intake, Oral 120 Output, Urine 824 344 9414 Patient 218 lb 224 lb 234 lb Weight Physical Exam: He is in no distress. He is breathing comfortably without oxygen. HEENT exam is normal Chest is clear Heart reveals irregular rhythm, soft heart sounds, no murmurs Abdomen shows massive splenomegaly Extremities revealed 2+ edema Labs/Jordi Results: Laboratory Tests 08/26 08/26 08/25 0700 0155 2115 Blood Gas pH (7.35 - 7.45 PH) 7.49 H pCO2 (35 - 45 TORR) 37 pO2 (80 - 100 TORR) 88 HCO3 (21 - 28 MEQ/L) 27 ABG O2 Sat (Measured) (>96.0 %) 95.0 L Carboxyhemoglobin (1.5 - 5.0 %) 0.8 L O2 Concentration % 50% O2 Delivery Method V/M Chemistry Sodium (137 - 145 mmol/L) 140 Potassium (3.5 - 5.1 mmol/L) 3.5 Chloride (98 - 107 mmol/L) 97 L Carbon Dioxide (22 - 30 mmol/L) 30 Anion Gap (5 - 16) 13 BUN (9 - 20 mg/dL) 30 H Creatinine (0.7 - 1.2 mg/dL) 0.9 Estimated GFR (>60 ml/min) > 60 BUN/Creatinine Ratio (7 - 25 %) 33.3 H Troponin I (<0.11 ng/ml) < 0.01 Hematology CBC w Diff MAN DIFF ORDERED WBC (4.8 - 10.8 /CUMM) 127.4 *H RBC (4.70 - 6.10 /CUMM) 2.42 L Hgb (14.0 - 18.0 G/DL) 7.5 L Hct (42 - 52 %) 23.3 L MCV (80.0 - 94.0 FL) 96.4 H MCH (27.0 - 31.0 PG) 31.1 H RDW (11.5 - 14.5 %) 24.4 H Plt Count (130 - 400 /CUMM) 69 L MPV (7.4 - 10.4 FL) 7.8 Segmented Neutrophils (42.2 - 75.2 %) 5 L Lymphocytes (20.5 - 51.1 %) 95 H Platelet Estimate (ADEQUATE) DECREASED Hypochromic-Microcytic 1+ Poikilocytosis 1+ Anisocytosis 1+ Ovalocytes FEW Stomatocytes RARE PUBS MCHC (33.0 - 37.0 G/DL) 32.2 L Miscellaneous Phlebotomy Draw Site RIGHT RADIAL 08/25 08/25 1830 1152 Chemistry Troponin I (<0.11 ng/ml) 0.02 Urines Urine Color (YEL,AMB,STR) YEL Urine Clarity (CLEAR) CLEAR Urine pH (5.0 - 8.0) 6.0 Ur Specific [place] (1.001 - 1.035) 1.015 Urine Protein (NEG,<30 MG/DL) NEG Urine Ketones (NEG) NEG Urine Nitrite (NEG) NEG Urine Bilirubin (NEG) NEG Urine Urobilinogen (0.1 - 1.0 EU/dl) 1.0 Ur Leukocyte Esterase (NEG) NEG Ur Microscopic SEDIMENT EXAMINED Urine RBC (0 - 5 /HPF) RARE Urine WBC (0 - 2 /HPF) RARE Ur Epithelial Cells (NONE,FEW) RARE Urine Hemoglobin (NEG) TRACE-LYSED H Urine Glucose (N MG/DL) NEG 08/25 08/25 1144 1110 Blood Gas pH (7.35 - 7.45 PH) 7.51 H pCO2 (35 - 45 TORR) 28 L pO2 (80 - 100 TORR) 74 L HCO3 (21 - 28 MEQ/L) 22 ABG O2 Sat (Measured) (>96.0 %) 93.0 L P-50 (Temp Corrected) N Carboxyhemoglobin (1.5 - 5.0 %) 0.7 L O2 Concentration % 2LPM O2 Delivery Method NC Chemistry Sodium (137 - 145 mmol/L) 140 Potassium (3.5 - 5.1 mmol/L) 3.6 Chloride (98 - 107 mmol/L) 99 Carbon Dioxide (22 - 30 mmol/L) 26 Anion Gap (5 - 16) 14 BUN (9 - 20 mg/dL) 33 H Creatinine (0.7 - 1.2 mg/dL) 0.9 Estimated GFR (>60 ml/min) > 60 BUN/Creatinine Ratio (7 - 25 %) 36.7 H Glucose (65 - 99 mg/dL) 123 H Calcium (8.4 - 10.2 mg/dL) 8.1 L Total Bilirubin (0.2 - 1.3 mg/dL) 1.1 AST (17 - 59 U/L) 22 ALT (21 - 72 U/L) 22 Alkaline Phosphatase (< 127 U/L) 78 Troponin I (<0.11 ng/ml) < 0.01 [id number] Pept (<125 pg/mL) 4200 H Total Protein (6.3 - 8.2 g/dL) 5.6 L Albumin (3.5 - 5.0 g/dL) 2.9 L Globulin (1.9 - 4.2 gm/dL) 2.7 Albumin/Globulin Ratio (1.1 - 2.2 %) 1.1 Coagulation PT (9.4 - 12.5 SEC) 13.9 H INR (0.90 - 1.17) 1.33 H APTT (25 - 37 SEC) 36 Hematology CBC w Diff MAN DIFF ORDERED WBC (4.8 - 10.8 /CUMM) 128.5 *H RBC (4.70 - 6.10 /CUMM) 2.46 L Hgb (14.0 - 18.0 G/DL) 7.7 L Hct (42 - 52 %) 23.7 L MCV (80.0 - 94.0 FL) 96.4 H MCH (27.0 - 31.0 PG) 31.2 H RDW (11.5 - 14.5 %) 24.4 H Plt Count (130 - 400 /CUMM) 68 L MPV (7.4 - 10.4 FL) 8.1 Segmented Neutrophils (42.2 - 75.2 %) 3 L Lymphocytes (20.5 - 51.1 %) 93 H Monocytes (1.7 - 9.3 %) 4 Platelet Estimate (ADEQUATE) DECREASED Hypochromic-Microcytic 1+ Poikilocytosis 1+ Anisocytosis 1+ Ovalocytes 1+ PUBS MCHC (33.0 - 37.0 G/DL) 32.4 L Miscellaneous Phlebotomy Draw Site RIGHT RADIAL Diagnostic Data EKG Results EKGs have shown consistently atrial fibrillation with normal rates, occasional PVCs, very low voltage in the frontal plane, nonspecific ST-T wave abnormalities CXR Results PATIENT: GARTH THOMAS PRESENT AGE: 76 PATIENT ACCOUNT NO: [id number] : 41 LOCATION: [facility] ORDERING PHYSICIAN: ANAMARIA MERINO MD SERVICE DATE: 08/25/16 EXAM TYPE: RAD - XRY-PORTABLE CHEST XRAY EXAMINATION: XR PORTABLE CHEST CLINICAL INFORMATION: Cough and shortness of breath. COMPARISON: CXR from 06/14/2016 and 07/14/2016 TECHNIQUE: Portable view of the chest was obtained. FINDINGS: Again noted is a large cardiac silhouette and large central pulmonary vessels. No evidence of interlobular septal thickening, acute pulmonary consolidation or pleural effusion. There is linear opacity of scarring in the right upper lobe. Probable discoid atelectasis in the inferior lingula, as well. The diaphragms remain well defined. There is atherosclerotic calcification of the aorta. There is osteoarthritic deformity of both glenohumeral joints. IMPRESSION: 1. Cardiomegaly and pulmonary vascular congestion, similar in appearance compared to prior exams. 2. There is no overt pneumonia or pleural effusion observed on this single view exam. DICTATED BY: GE SHER MD DATE/TIME DICTATED:08/25/161140 PORTFOLIO CONSULTANT:ULISES DATE/TIME TRANSCRIBED:08/25/161140 CONFIDENTIAL, DO NOT COPY WITHOUT APPROPRIATE AUTHORIZATION. <Electronically signed in Other Vendor System> SIGNED BY: GE SHER MD 08/25/16 1150 Assessment/Plan Assessment/Plan Mr. Thomas presents with increasing shortness of breath and edema. Some of this may be due to progressive anemia. His edema has been much worse in the past. He is not in left sided congestive heart failure by chest x-ray or exam. I believe he has volume overload and edema secondary to right-sided heart failure due to chronic pulmonary hypertension and atrial fibrillation and left ventricular diastolic dysfunction. He has chronic atrial fibrillation with well -controlled rate and is not anticoagulated for many reasons. I recommend transfusing him, which is being done. We will give him a day or 2 of intravenous Lasix. Hopefully he can be discharged fairly soon. He can be moved to general medicine floor as he has 3 negative enzymes and his atrial fibrillation is chronic and arrhythmias are not a problem. Consult Acknowledgment - Thank you for your consult request.
[2016-08-26 15:00] VITALS: BP 110/64
--- NOTE | 2016-08-26 15:08 | Event Note ---
Event Note Event Note: pt had acute respiratory failure
[2016-08-26 21:01] VITALS: BP 124/64
[2016-08-26 21:13] VITALS: BP 124/64
[2016-08-26 23:35] VITALS: BP 130/60
[2016-08-27 00:05] LABS: HEMATOCRIT 26.3 % (42-52); MEAN CORPUSCULAR HGB 30.9 PG (27.0-31.0); MEAN CORPUSCULAR HGB CONC 32.2 G/DL (33.0-37.0); MEAN PLATELET VOLUME 8.6 FL (7.4-10.4); PLATELET COUNT 67 /CUMM (130-400); RBC DISTRIBUTION WIDTH 23.3 % (11.5-14.5); RED BLOOD CELL CT 2.74 /CUMM (4.70-6.10)
[2016-08-27 00:23] LABS: WHITE BLOOD CELL COUNT 138.2 /CUMM (4.8-10.8)
[2016-08-27 06:31] VITALS: BP 170/60
--- NOTE | 2016-08-27 07:28 | Cons- Hematology ---
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 The patient has received multiple chemotherapeutic regimens or his leukemia, the last was pentostatin. Patient currently feels somewhat improved with less shortness of breath. He denies chest pain or hemoptysis Allergies/Medications Allergies: Coded Allergies: Tetanus Vaccines and Toxoid (ANAPHYLAXIS 07/13/16) Horse/Equine Containing Products (Mild, ANAPHYLAXIS 07/13/16) THEY USED THIS TO MAKE PCN YEARS AGO, BUT THEY DO NOT USE THIS ANYMORE. Home Med List: Albuterol Sulfate 2.5 MG/3 ML (0.083 %) VIAL.NEB 1 Vial INH/MELANIA TID PRN COPD (Reported) Allopurinol 300 MG TAB 1 TAB PO DAILY GOUT (Reported) Aspirin (Children's Aspirin) 81 MG TAB 1 TAB PO DAILY blood thinner Escitalopram Oxalate (Lexapro) 20 MG TABLET 1 TAB PO DAILY Depression ( Reported) Finasteride (Propecia) 5 MG TAB 5 MG PO AT BEDTIME BPH (Reported) FLUTICASONE/SALMETEROL (Advair 250-50 Diskus) 1 DSK DSK 1 PUFF INH BID COPD ( Reported) Furosemide (Lasix) 40 MG TABLET 1 TAB PO BID CHF (Reported) Meloxicam 15 MG TAB 1 TAB PO DAILY ANTI-INFLAMMATORY (Reported) Mometasone/Formoterol (Dulera 200 Mcg/5 Mcg Inhaler) 200 MCG-5 MCG/ACTUATION HFA.AER.AD 2 PUF INH BID BREATHING PROBLEMS (Reported) Multivitamin (Multiple Vitamins) (Unknown Strength) TAB 1 TAB PO DAILY SUPPLEMENT (Reported) Oxycodone HCl 5 MG TABLET 1 TAB PO Q6 PRN Back pain (Reported) Potassium Chloride [address] 20 MEQ PO DAILY SUPPLEMENT (Reported) Tamsulosin Hydrochloride (Flomax) 0.4 MG CAP 1 CAP PO AT BEDTIME PROSTATE ( Reported) Trazodone HCl 50 MG TABLET 1 TAB PO QPM PRN Insomnia (Reported) Current Medications: Current Medications Sig/Sherron Start time Last Medication Dose Route Stop Time Status Admin Acetaminophen 650 MG Q4P PRN 08/25 1630 AC PO Albuterol Sulfate 3 ML BID 08/25 2200 AC 08/26 INH 1934 Albuterol Sulfate 3 ML TID PRN 08/25 1400 AC INH Allopurinol 300 MG DAILY 08/25 1355 AC 08/26 PO 1041 Aspirin 81 MG DAILY 08/26 1000 AC 08/26 PO 1040 Budesonide/ 2 PUF BID 08/25 1356 AC 08/26 Formoterol Fumarate INH 2151 Diclofenac Sodium 1 VICENTA DAILY PRN 08/25 1445 AC TOP Escitalopram Oxalate 20 MG DAILY 08/25 1355 AC 08/26 PO 1040 Finasteride 5 MG AT BEDTIME 08/25 2200 AC 08/26 PO 2151 Furosemide 40 MG 7:30 AM, & 4:30 PM 08/25 1630 AC 08/26 IV 1832 Multivitamins 1 TAB DAILY 08/25 1357 AC 08/26 PO 1041 Nystatin 1 VICENTA TID 08/26 0206 AC 08/26 TOP 2152 Oxycodone HCl 5 MG Q6P PRN 08/25 1400 AC PO Polyethylene Glycol 17 GM DAILY PRN 08/25 1415 AC PO Potassium Chloride 20 MEQ BID 08/26 1000 AC 08/26 PO 2151 Potassium Chloride 20 MEQ DAILY 08/25 1357 DC 08/25 PO 1433 Prednisone 40 MG DAILY 08/26 1000 DC PO Tamsulosin HCl 0.4 MG AT BEDTIME 08/25 2200 AC 08/26 PO 2151 Trazodone HCl 50 MG QPM PRN 08/25 1400 AC 08/26 PO 0020 Review of Systems Review of Systems: Patient denies headaches or dizziness. The patient denies nausea vomiting or change of bowel habits. Patient denies dysuria or hematuria. Patient does complain of left upper quadrant pain. 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 Home Who Do You Live With? spouse Services at Home: Oxygen Smoking Status: Former Smoker ETOH Use: denies use Illicit Drug Use: denies illicit drug use Living Will? yes Functional Ability ADLs Needs Assist: dressing, eating, toileting, bathing. Ambulation: walker IADLs Needs Assist: shopping, housework, finances, food prep, telephone, transportation, medication admin. Exam & Diagnostic Data Vital Signs and I&O Vital Signs Date Time Temp Pulse Resp B/P Pulse O2 O2 Flow FiO2 Ox Delivery Rate 08/27 0631 98.1 64 20 170/60 94 Nasal 4.0L Cannula 08/27 0105 63 96 08/27 0000 Nasal 4.0L Cannula 08/26 2335 99.3 68 20 130/60 95 CPAP 08/26 2151 67 124/64 08/26 2113 97.9 67 20 124/64 94 Nasal 4.0L Cannula 08/26 2030 93 Nasal 4.0L Cannula 08/26 1938 94 Nasal 4.0L Cannula 08/26 1500 97.9 67 24 110/64 96 Nasal 4.0L Cannula 08/26 1053 90 Nasal 4.0L Cannula 08/26 0835 98.0 66 20 130/68 93 Nasal 6.0L Cannula 08/26 0800 96 Nasal 4.0L Cannula Intake & Output 08/27 0800 08/27 0000 08/26 1600 Intake Total 240 240 480 Output Total 400 550 575 Balance -160 -310 -95 Intake, Oral 240 240 480 Output, Urine 400 550 575 Patient 216 lb Weight Gen.: in NAD ENT: Sclera anicteric Chest: Normal respiratory effort, decreased breath sounds Cor: RRR, no extra sounds Abdomen: Soft, bowel sounds present, massive tender splenomegaly Extremities: Without clubbing, cyanosis, or edema Neurology: Alert slightly confused, no gross deficit Last 48 Hours of Lab Results: Laboratory Tests 08/26 08/26 2310 0700 Chemistry Sodium (137 - 145 mmol/L) 140 Potassium (3.5 - 5.1 mmol/L) 3.5 Chloride (98 - 107 mmol/L) 97 L Carbon Dioxide (22 - 30 mmol/L) 30 Anion Gap (5 - 16) 13 BUN (9 - 20 mg/dL) 30 H Creatinine (0.7 - 1.2 mg/dL) 0.9 Estimated GFR (>60 ml/min) > 60 BUN/Creatinine Ratio (7 - 25 %) 33.3 H Hematology CBC w Diff MAN DIFF ORDERED MAN DIFF ORDERED WBC (4.8 - 10.8 /CUMM) 138.2 *H 127.4 *H RBC (4.70 - 6.10 /CUMM) 2.74 L 2.42 L Hgb (14.0 - 18.0 G/DL) 8.4 L 7.5 L Hct (42 - 52 %) 26.3 L 23.3 L MCV (80.0 - 94.0 FL) 96.0 H 96.4 H MCH (27.0 - 31.0 PG) 30.9 31.1 H RDW (11.5 - 14.5 %) 23.3 H 24.4 H Plt Count (130 - 400 /CUMM) 67 L 69 L MPV (7.4 - 10.4 FL) 8.6 7.8 Segmented Neutrophils (42.2 - 75.2 %) 1 L 5 L Lymphocytes (20.5 - 51.1 %) 98 H 95 H Monocytes (1.7 - 9.3 %) 1 L Platelet Estimate (ADEQUATE) DECREASED Hypochromic-Microcytic 1+ Poikilocytosis 1+ Anisocytosis 1+ Ovalocytes FEW Stomatocytes RARE PUBS MCHC (33.0 - 37.0 G/DL) 32.2 L 32.2 L Other Body Source Fld Total RBCs Counted (%) 100 08/26 08/25 08/25 0155 8450 9910 Blood Gas pH (7.35 - 7.45 PH) 7.49 H pCO2 (35 - 45 TORR) 37 pO2 (80 - 100 TORR) 88 HCO3 (21 - 28 MEQ/L) 27 ABG O2 Sat (Measured) (>96.0 %) 95.0 L Carboxyhemoglobin (1.5 - 5.0 %) 0.8 L O2 Concentration % 50% O2 Delivery Method V/M Chemistry Troponin I (<0.11 ng/ml) < 0.01 0.02 Miscellaneous Phlebotomy Draw Site RIGHT RADIAL 08/25 08/25 1152 1144 Chemistry Sodium (137 - 145 mmol/L) 140 Potassium (3.5 - 5.1 mmol/L) 3.6 Chloride (98 - 107 mmol/L) 99 Carbon Dioxide (22 - 30 mmol/L) 26 Anion Gap (5 - 16) 14 BUN (9 - 20 mg/dL) 33 H Creatinine (0.7 - 1.2 mg/dL) 0.9 Estimated GFR (>60 ml/min) > 60 BUN/Creatinine Ratio (7 - 25 %) 36.7 H Glucose (65 - 99 mg/dL) 123 H Calcium (8.4 - 10.2 mg/dL) 8.1 L Total Bilirubin (0.2 - 1.3 mg/dL) 1.1 AST (17 - 59 U/L) 22 ALT (21 - 72 U/L) 22 Alkaline Phosphatase (< 127 U/L) 78 Troponin I (<0.11 ng/ml) < 0.01 [id number] Pept (<125 pg/mL) 4200 H Total Protein (6.3 - 8.2 g/dL) 5.6 L Albumin (3.5 - 5.0 g/dL) 2.9 L Globulin (1.9 - 4.2 gm/dL) 2.7 Albumin/Globulin Ratio (1.1 - 2.2 %) 1.1 Coagulation PT (9.4 - 12.5 SEC) 13.9 H INR (0.90 - 1.17) 1.33 H APTT (25 - 37 SEC) 36 Hematology CBC w Diff MAN DIFF ORDERED WBC (4.8 - 10.8 /CUMM) 128.5 *H RBC (4.70 - 6.10 /CUMM) 2.46 L Hgb (14.0 - 18.0 G/DL) 7.7 L Hct (42 - 52 %) 23.7 L MCV (80.0 - 94.0 FL) 96.4 H MCH (27.0 - 31.0 PG) 31.2 H RDW (11.5 - 14.5 %) 24.4 H Plt Count (130 - 400 /CUMM) 68 L MPV (7.4 - 10.4 FL) 8.1 Segmented Neutrophils (42.2 - 75.2 %) 3 L Lymphocytes (20.5 - 51.1 %) 93 H Monocytes (1.7 - 9.3 %) 4 Platelet Estimate (ADEQUATE) DECREASED Hypochromic-Microcytic 1+ Poikilocytosis 1+ Anisocytosis 1+ Ovalocytes 1+ PUBS MCHC (33.0 - 37.0 G/DL) 32.4 L Urines Urine Color (YEL,AMB,STR) YEL Urine Clarity (CLEAR) CLEAR Urine pH (5.0 - 8.0) 6.0 Ur Specific [place] (1.001 - 1.035) 1.015 Urine Protein (NEG,<30 MG/DL) NEG Urine Ketones (NEG) NEG Urine Nitrite (NEG) NEG Urine Bilirubin (NEG) NEG Urine Urobilinogen (0.1 - 1.0 EU/dl) 1.0 Ur Leukocyte Esterase (NEG) NEG Ur Microscopic SEDIMENT EXAMINED Urine RBC (0 - 5 /HPF) RARE Urine WBC (0 - 2 /HPF) RARE Ur Epithelial Cells (NONE,FEW) RARE Urine Hemoglobin (NEG) TRACE-LYSED H Urine Glucose (N MG/DL) NEG 08/25 1110 Blood Gas pH (7.35 - 7.45 PH) 7.51 H pCO2 (35 - 45 TORR) 28 L pO2 (80 - 100 TORR) 74 L HCO3 (21 - 28 MEQ/L) 22 ABG O2 Sat (Measured) (>96.0 %) 93.0 L P-50 (Temp Corrected) N Carboxyhemoglobin (1.5 - 5.0 %) 0.7 L O2 Concentration % 2LPM O2 Delivery Method NC Miscellaneous Phlebotomy Draw Site RIGHT RADIAL Imaging/Other Studies: Chest x-ray no change- Assessment/Plan Assessment: 1. Cardiac status-slightly improved. Certainly patient would likely benefit from red cell transfusion. There may or may not be a component of high output failure. It is unlikely the patient has hyperleukocytosis syndrome 2. Variant hairy cell leukemia-patient has seen multiple regimens thus far without significant benefit. 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 I Again discussed with the patient has extremely poor prognosis. I do not have plans for further chemotherapy. Recommend- Transfuse red cells I will follow the patient up as an outpatient No plans for further chemotherapy Recommendations: .. Consult Acknowledgment - Thank you for your consult request.
--- NOTE | 2016-08-27 08:26 | PN- Pulmonary ---
Subjective HPI/Critical Care Issues: Patient feels markedly improved with diminished shortness of breath oncology evaluation noted Objective Current Medications: Current Medications Sig/Sherron Start time Last Medication Dose Route Stop Time Status Admin Acetaminophen 650 MG Q4P PRN 08/25 1630 AC PO Albuterol Sulfate 3 ML BID 08/25 2200 AC 08/26 INH 1934 Albuterol Sulfate 3 ML TID PRN 08/25 1400 AC INH Allopurinol 300 MG DAILY 08/25 1355 AC 08/27 PO 0806 Aspirin 81 MG DAILY 08/26 1000 AC 08/27 PO 0807 Budesonide/ 2 PUF BID 08/25 1356 AC 08/27 Formoterol Fumarate INH 0809 Diclofenac Sodium 1 VICENTA DAILY PRN 08/25 1445 AC TOP Escitalopram Oxalate 20 MG DAILY 08/25 1355 AC 08/27 PO 0808 Finasteride 5 MG AT BEDTIME 08/25 2200 AC 08/26 PO 2151 Furosemide 40 MG 7:30 AM, & 4:30 PM 08/25 1630 AC 08/27 IV 0806 Multivitamins 1 TAB DAILY 08/25 1357 AC 08/27 PO 0806 Nystatin 1 VICENTA TID 08/26 0206 AC 08/27 TOP 0809 Oxycodone HCl 5 MG Q6P PRN 08/25 1400 AC PO Polyethylene Glycol 17 GM DAILY PRN 08/25 1415 AC PO Potassium Chloride 20 MEQ BID 08/26 1000 AC 08/27 PO 0807 Potassium Chloride 20 MEQ DAILY 08/25 1357 DC 08/25 PO 1433 Prednisone 40 MG DAILY 08/26 1000 DC PO Tamsulosin HCl 0.4 MG AT BEDTIME 08/25 2200 AC 08/26 PO 2151 Trazodone HCl 50 MG QPM PRN 08/25 1400 AC 08/26 PO 0020 Vital Signs & I&O Last 24 Hrs of Vitals and I&O: Vital Signs Date Time Temp Pulse Resp B/P Pulse O2 O2 Flow FiO2 Ox Delivery Rate 08/27 0631 98.1 64 20 170/60 94 Nasal 4.0L Cannula 08/27 0105 63 96 08/27 0000 Nasal 4.0L Cannula 08/26 2335 99.3 68 20 130/60 95 CPAP 08/26 2151 67 124/64 08/263 97.9 67 20 124/64 94 Nasal 4.0L Cannula 08/26 2030 93 Nasal 4.0L Cannula 08/26 1938 94 Nasal 4.0L Cannula 08/26 1500 97.9 67 24 110/64 96 Nasal 4.0L Cannula 08/26 1053 90 Nasal 4.0L Cannula 08/26 0835 98.0 66 20 130/68 93 Nasal 6.0L Cannula Intake & Output 08/27 1600 08/27 0800 08/27 0000 Intake Total 240 240 Output Total 400 550 Balance -160 -310 Intake, Oral 240 240 Output, Urine 400 550 Patient 216 lb Weight Oxygen saturation 4 L 94-96% he continues to diurese well exam of his chest shows diminished crackles there are no wheezes cardiac exam shows regular S1 and S2 without murmurs Impression/Plan Impression/Plan Impression/Plan: 76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 There may be a component of high output failure as he is significantly more anemic. Patient' s congestive heart failure and respiratory status appears improved Recommendations: Taper FiO2 his saturations allow. Continue negative fluid balance leg elevation. Follow-up sputum, culture and quick flu
--- NOTE | 2016-08-27 08:34 | PN- Housestaff ---
MAXIMILIANO DORANTES 08/27/16 0819: Subjective Follow-up For: CHF decompensation CLL and worsened chronic anemia Dyspnea Complaints: Mild dyspnea on exertion and back pain Subjective: Patient was transferred to last night. No incident overnight. I visited and interviewed the patient. He is in good spirit. His symptoms have improved, and has shrunken down to mild exertional dyspnea and his chronic back pain. He has been diurised with IV lasix and his peripheral edema has improved. VS are generally stable and not-conecrning at this point. Review of Systems Constitutional: Reports: malaise. Denies: chills, diaphoresis, fever, weakness, unexplained weight loss. EENTM: Denies: blurred vision, double vision, visual changes, eye pain, eye drainage, eye tearing, icterus, ear discharge, ear pain, ear redness, hearing changes, nasal congestion, epistaxis, nasal pain, throat pain, throat swelling, mouth pain, tooth pain. Cardiovascular: Denies: chest pain, edema, orthopena, palpitations, peripheral edema, syncope. Respiratory: Denies: cough, hemoptysis, orthopnea, short of breath, sputum production, stridor, wheezing. Gastrointestinal: Denies: abdominal pain, bloating, constipation, diarrhea, distention, bowel incontinence, melena, nausea, bloody stool, changes in stool, vomiting, steatorrhea. Genitourinary: Denies: discharge, dysuria, frequency, hematuria, hesitation, nocturia, pain, urgency. Musculoskeletal: Denies: back pain, gout, joint pain, joint swelling, muscle pain, muscle stiffness, neck pain. Skin: Denies: cysts, change in skin color, change in hair/nails, dryness, erythema, jaundice, lesions, lymphangitis, lumps, moles, rash. Neurological/Psychological: Denies: anxiety, ataxia, cognitive dysfunction, confusion, depressed, dementia, emotional problems, headache, numbness, paresthesia, pre-existing deficit, petit mal seizures, tingling, tremors, tonic-clonic seizures, unable to move lower ext , unable to move upper ext, weakness, other. Objective Last 24 Hrs of Vital Signs/I&O Vital Signs Date Time Temp Pulse Resp B/P Pulse O2 O2 Flow FiO2 Ox Delivery Rate 08/27 0631 98.1 64 20 170/60 94 Nasal 4.0L Cannula 01/13 0105 63 96 08/27 0000 Nasal 4.0L Cannula 08/26 2335 99.3 68 20 130/60 95 CPAP 08/26 2151 67 124/64 08/26 2113 97.9 67 20 124/64 94 Nasal 4.0L Cannula 08/26 2030 93 Nasal 4.0L Cannula 08/26 1938 94 Nasal 4.0L Cannula 08/26 1500 97.9 67 24 110/64 96 Nasal 4.0L Cannula 08/26 1053 90 Nasal 4.0L Cannula 08/26 0835 98.0 66 20 130/68 93 Nasal 6.0L Cannula Intake & Output 08/27 1600 08/27 0800 08/27 0000 Intake Total 240 240 Output Total 400 550 Balance -160 -310 Intake, Oral 240 240 Output, Urine 400 550 Patient 216 lb Weight Physical Exam General Appearance: Alert, Oriented X3, Cooperative, Mild Distress Skin: pale, bruises HEENT: sclrea pale , MM are dry Neck: No JVD Lymphatic: Axillary nl, Cervical nl Cardiovascular: Normal S1, Normal S2, No Murmurs Lungs: Clear to Auscultation, Normal Air Movement Abdomen: Soft, No Tenderness, Massive splenomegaly Neurological: Normal Speech, Normal Tone Extremities: No Clubbing, No Cyanosis, peripheral edema has improved , stasis dermatitis; B/L Vascular: Normal Pulses, Pulses Symmetrical Current Medications: Current Medications Sig/Sherron Start time Last Medication Dose Route Stop Time Status Admin Acetaminophen 650 MG Q4P PRN 08/25 1630 AC PO Albuterol Sulfate 3 ML BID 08/25 2200 AC 08/26 INH 1934 Albuterol Sulfate 3 ML TID PRN 08/25 1400 AC INH Allopurinol 300 MG DAILY 08/25 1355 AC 08/27 PO 0806 Aspirin 81 MG DAILY 08/26 1000 AC 08/27 PO 0807 Budesonide/ 2 PUF BID 08/25 1356 AC 08/27 Formoterol Fumarate INH 0809 Diclofenac Sodium 1 VICENTA DAILY PRN 08/25 1445 AC TOP Escitalopram Oxalate 20 MG DAILY 08/25 1355 AC 08/27 PO 0808 Finasteride 5 MG AT BEDTIME 08/25 2200 AC 08/26 PO 2151 Furosemide 40 MG 7:30 AM, & 4:30 PM 08/25 1630 AC 08/27 IV 0806 Multivitamins 1 TAB DAILY 08/25 1357 AC 08/27 PO 0806 Nystatin 1 VICENTA TID 08/26 0206 AC 08/27 TOP 0809 Oxycodone HCl 5 MG Q6P PRN 08/25 1400 AC PO Polyethylene Glycol 17 GM DAILY PRN 08/25 1415 AC PO Potassium Chloride 20 MEQ BID 08/26 1000 AC 08/27 PO 0807 Potassium Chloride 20 MEQ DAILY 08/25 1357 DC 08/25 PO 1433 Prednisone 40 MG DAILY 08/26 1000 DC PO Tamsulosin HCl 0.4 MG AT BEDTIME 08/25 2200 AC 08/26 PO 2151 Trazodone HCl 50 MG QPM PRN 08/25 1400 AC 08/26 PO 0020 Last 24 Hrs of Lab/Jordi Results Last 24 Hrs of Labs/Mics: Laboratory Tests 08/27/16 0800: Sodium Pending, Potassium Pending, Chloride Pending, Carbon Dioxide Pending, Anion Gap Pending, BUN Pending, Creatinine Pending, BUN/Creatinine Ratio Pending , CBC w Diff Pending, WBC Pending, RBC Pending, Hgb Pending, Hct Pending, MCV Pending, MCH Pending, RDW Pending, Plt Count Pending, MPV Pending, PUBS MCHC Pending 08/26/16 2310: CBC w Diff MAN DIFF ORDERED, RBC 2.74 L, MCV 96.0 H, MCH 30.9, RDW 23.3 H, MPV 8.6, Segmented Neutrophils 1 L, Lymphocytes 98 H, Monocytes 1 L, PUBS MCHC 32.2 L, Fld Total RBCs Counted 100 Microbiology 08/26 1036 LOWER RESP: Respiratory Culture - COLB 08/26 1036 LOWER RESP: Gram Stain - COLB Assessment/Plan Assessment: 76-year-old gentleman with past medical history significant for 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 Plan #1 worsening dyspnea on exertion and peripheral edema: Mostly due to CHF exacerbation (evident by elevated JVD and pulmonary congestion and peripheral edema and elevated proBNP) with some elements of COPD and asthma overlap syndrome exacerbation and worsened anemia. * tarnsferred to GM * Strict ins and outs control; maintain negative fluid balance * switch to po lasix 40 MG BID; maintaine negative fluid balance * Check electrolytes for renal function and potassium * Replete potassium with potassium chloride 20 mEq daily * Daily weights, heart healthy diet with restricted salt intake, fluid restriction of 15-1800 mL; elevate lower extremities * No need for new echo * Follow cardiology recommendation * Off antibiotics; she does not have any findings suggestive of overt infection * O2 NC as tolerated; keep O2 sat above 90% * Christina O2 as tolerated * TRC/nebs [id number] as needed * Symbicort 2 puff twice a day * Proventil 3 mL 3 times a day as needed * short course steroid with prednisone 40 mg po x 5 days * Pulmonology recommendation * Received 1 unit of PRBC; per Hem/Onc, patient would benefit from transfusion; Currently Hgb above 8 mg/dl w/o any acute coronary issues; no urgent need to transfuse * Target Hgb is >8 mg/dl * In case of worsening respiratory status watch for the sings of overload and give extra dose of lasix if it was necessary * Follow Hem/oncology recommendation #2 chronic pain syndrome * Tylenol 650 mg every 6 as needed for mild pain * Roxicodone 5 mg every 6 as needed for severe pain * Voltran gel #3 gout Allopurinol 300 mg by mouth daily #4 BPH and incontinence * Continue Flomax 0.4 mg by mouth at bedtime * Continue finasteride 5 mg by mouth at bedtime #5 leukocytosis and thrombocytopenia-in the setting of pericellular leukemia- stable #6 atrial fibrillation not on anticoagulation-continue aspirin #7 hypokalemia: labs pending #8 Ambulation: daily PT Problem List: 1. CHF (congestive heart failure) 2. Dependent edema 3. Dyspnea 4. COPD (chronic obstructive pulmonary disease) 5. Edema of left lower extremity 6. CLL (chronic lymphocytic leukemia) Pain Ratin Pain Location: back Pain Goal: Pain 4 or less Pain Plan: voltran Roxicodone Tomorrow's Labs & Rationales: cbc bep CLL and anemia Lasix Discharge Plan Discharge Disposition: STR/NH Stable for Discharge? No Anticipated Discharge (Day): tomorrow If Discharged Today/In 24 Hrs: W-10/discharge paper done, DC summary done, CMR done HARDEEP CHAUHAN MD 08/27/16 1006: Attending MD Review Statement Attending Statement Attending MD Statement: examined this patient, discuss w/resident/PA/LINE DECORATOR, agreed w/resident/PA/LINE DECORATOR, reviewed EMR data (avail), discussed with nursing Attending Assessment/Plan: Patient feels much better. We are switching to by mouth Lasix today and titrate the oxygen slowly. He is a 76-year-old with hairy cell leukemia, lymphocytosis anemia and thrombocytopenia, history of COPD and chronic diastolic heart failure. He came in with acute respiratory failure and we treated him for anemia associated high-output failure. We transfused him 1 unit of blood. Oncology is recommending outpatient follow-up. We'll slowly titrate the oxygen, talk to Cardiology and follow-up.
[2016-08-27 08:48] LABS: HEMATOCRIT 24.3 % (42-52); MEAN CORPUSCULAR HGB 31.7 PG (27.0-31.0); MEAN CORPUSCULAR HGB CONC 33.2 G/DL (33.0-37.0); MEAN CORPUSCULAR VOLUME 95.6 FL (80.0-94.0); MEAN PLATELET VOLUME 8.1 FL (7.4-10.4); PLATELET COUNT 58 /CUMM (130-400); RED BLOOD CELL CT 2.54 /CUMM (4.70-6.10)
[2016-08-27 08:57] LABS: WHITE BLOOD CELL COUNT 129.6 /CUMM (4.8-10.8)
--- NOTE | 2016-08-27 09:08 | Discharge Summary ---
Visit Information Visit Dates Admission Date: 08/25/16 Discharge Date: 08/31/16 Hospital Course Course Attending Physician: GISSEL BRIGHT,HARDEEP Joy Primary Care Physician: DAYANARA LOVE DO [facility] Course: 76-year-old male with chronic respiratory failure, COPD on home oxygen and chronic diastolic heart failure, variant of hairy cell leukemia with thrombocytopenia and anemia and leukocytosis presneted to for worsening peripheral edema and exertional dyspnea.PH/EX: showed marked +2-3 BL piting edema of lower exttremities and bibasilar crackle in his lungs and visible JVD. Inital work up in the ED showed that respiratory acidosis 2/2 to his acute on chronic respiratory failure. CXR was indicative of cephalizationn and pulmonary congestion and cardiomegaly. BEP was remarkable for ProBNP 4200,Sodium 140, potassium 3.6, BUN/creatinine ratio 36.7 sets of troponin negative hemoglobin 7.7 hematocrit 23.7. His EKG showed Atrial Fibrilation, irregular, 80s bpm, and no acute ST, T segment or blockade. Active issues during this hospitalization: 1) Decompensated HFpEF: mitchel had an Echo done in that showed Left ventricle dilation with ejection fraction of 55-60% no regional wall motion abnormality right ventricle systolic pressure of 50 mm. His symptomatology were mostly related to CHF decompensation, addtionally he has worsening of his anemia and acute on chronic respiratory failure, as contributory factors. Patient was seen by conditioning machine operator, Outreach Educator, and his Hemotologist/ Oncologist. Patient was started on IV lasix for diuresis and daily fluid restriction in order to maintaine negative fluid balance, and O2 Oxygen with the goal of O2 Sat% of above 90-92% and TRC/NEB treatment round the clock and also one unit of PRBC for Hgb/Hct of 7.5/23.3. After spending 24h in the Telemetry unit patient was transferred to [facility] medical [facility] for continuation of care. On the following day, third hospital day stay, patient peripheral edema improved but patient remained on 4 lit of Oxygen N/C. His H&H on the third day was 8.1/ 24.3. He was seen by physical therapist, who found his weak and high-reisk for fall. PT recommended STR for the patient. Chronic/ stable issues 2) CLL: He was seen by his own Hem/oncologist, who recommended PRBC transfusion as needed for worsening anemia and plan to follow up with Mr. Flowers as an out patient. 3)BPH: his home medications were resumed 4)Venous stasis- Stable; leg elevation 5) Afib; not on anticoagulation due to risk of fall, Rate is controlled w/o medication Patient remained stable on medical treatment and D.C to STR. Allergies: Coded Allergies: Tetanus Vaccines and Toxoid (ANAPHYLAXIS 07/13/16) Horse/Equine Containing Products (Mild, ANAPHYLAXIS 07/13/16) THEY USED THIS TO MAKE PCN YEARS AGO, BUT THEY DO NOT USE THIS ANYMORE. Disposition Summary Disposition Principal Diagnosis: CHF decompensation Additional Diagnosis: COPD/acute on chronic respiratory failure Afib; not on anticogulation or rate control Discharge Disposition: SNF Discharge Instructions General Discharge Information Code Status: Do Not Resucitate/Intubat Patient's Diet: heart healthy Patient's Activity: As tolerated Follow-Up Instructions/Appts: Follow up with Dr. Vera Please follow up with Dr. Gomez Please follow up With your PCP please follow up with Dr. Nolen Medications at Discharge Discharge Medications: Continue taking these medications: Finasteride (Propecia) 5 MG TAB 5 Milligram ORAL AT BEDTIME Comments: Last Taken:11/13/15 Time: 9 PM Tamsulosin Hydrochloride (Flomax) 0.4 MG CAP 1 Capsule ORAL AT BEDTIME Comments: NOT GIVEN IN THE HOSPITAL Meloxicam (Meloxicam) 15 MG TAB 1 Tablet ORAL DAILY Comments: NOT GIVEN IN THE HOSPITAL Multivitamin (Multiple Vitamins) (Unknown Strength) TAB 1 Tablet ORAL DAILY Comments: NOT GIVEN IN THE HOSPITAL Potassium Chloride (Potassium Chloride) [address] Millequivalent ORAL DAILY Comments: Last Taken:11/14/15 Time:10 AM Aspirin (Children's Aspirin) 81 MG TAB 1 Tablet ORAL DAILY Qty = 30 Comments: Last Taken:11/14/15 Time:10 AM Allopurinol (Allopurinol) 300 MG TAB 1 Tablet ORAL DAILY Qty = 30 Comments: Last Taken:11/14/15 Time:1015 AM Furosemide (Lasix) 40 MG TABLET 1 Tablet ORAL TWICE DAILY Comments: Last Taken: 07/16/16 Time: 9 AM Trazodone HCl (Trazodone HCl) 50 MG TABLET 1 Tablet ORAL Every night as needed for Insomnia Days = 60 Comments: Last Taken: 07/16/16 Time: 12 AM Escitalopram Oxalate (Lexapro) 20 MG TABLET 1 Tablet ORAL DAILY Days = 60 Comments: Last Taken: 07/16/16 Time: 9 AM Oxycodone HCl (Oxycodone HCl) 5 MG TABLET 1 Tablet ORAL EVERY SIX HOURS as needed for Back pain Days = 60 Comments: Last Taken: 07/16/16 Time: 12 AM Albuterol Sulfate (Albuterol Sulfate) 2.5 MG/3 ML (0.083 %) VIAL.NEB 1 Vial Inhale Solution THREE TIMES DAILY as needed for COPD Comments: Last Taken: 07/16/16 Time: 12 PM Mometasone/Formoterol (Dulera 200 Mcg/5 Mcg Inhaler) 200 MCG-5 MCG/ACTUATION HFA.AER.AD 2 Puff Inhale through mouth TWICE DAILY Qty = 13 Copies To: DAYANARA LOVE DO Attending MD Review Statement Documenting Attending: GISSEL BRIGHT,HARDEEP Joy
--- NOTE | 2016-08-27 11:35 | PN- Cardiology ---
Subjective Subjective: The patient is feeling better. He has no complaints today. He remains on IV Lasix. he has been seen by oncology who feels there is no further treatment available for him. Objective Vital Signs and I&Os Vital Signs Date Time Temp Pulse Resp B/P Pulse O2 O2 Flow FiO2 Ox Delivery Rate 08/27 0910 98 Nasal 4.0L Cannula 08/27 0631 98.1 64 20 170/60 94 Nasal 4.0L Cannula 08/27 0105 63 96 08/27 0000 Nasal 4.0L Cannula 08/26 2335 99.3 68 20 130/60 95 CPAP 08/26 2151 67 124/64 08/26 2113 97.9 67 20 124/64 94 Nasal 4.0L Cannula 08/26 2030 93 Nasal 4.0L Cannula 08/26 1938 94 Nasal 4.0L Cannula 08/26 1500 97.9 67 24 110/64 96 Nasal 4.0L Cannula Intake & Output 08/27 1600 08/27 0800 08/27 0000 08/26 1600 08/26 0800 08/26 0000 Intake Total 240 240 240 480 120 Output Total 250 400 550 575 400 735 Balance -10 -160 -310 -95 -400 -615 Intake, Oral 240 240 240 480 120 Number 1 Bowel Movements Output, Urine 250 400 550 575 400 735 Patient 216 lb 218 lb 224 lb Weight Physical Exam: he appears chronically ill but in no distress HEENT exam is normal Chest is clear Heart reveals irregular rhythm with soft heart sounds and no murmurs Abdomen reveals marked splenomegaly Extremities reveal 1-2+ edema of the lower extremities Current Medications: Current Medications Sig/Sherron Start time Last Medication Dose Route Stop Time Status Admin Acetaminophen 650 MG Q4P PRN 08/25 1630 AC PO Albuterol Sulfate 3 ML BID 08/25 2200 AC 08/27 INH 0907 Albuterol Sulfate 3 ML TID PRN 08/25 1400 AC INH Allopurinol 300 MG DAILY 08/25 1355 AC 08/27 PO 0806 Aspirin 81 MG DAILY 08/26 1000 AC 08/27 PO 0807 Budesonide/ 2 PUF BID 08/25 1356 AC 08/27 Formoterol Fumarate INH 0809 Diclofenac Sodium 1 VICENTA DAILY PRN 08/25 1445 AC TOP Escitalopram Oxalate 20 MG DAILY 08/25 1355 AC 08/27 PO 0808 Finasteride 5 MG AT BEDTIME 08/25 2200 AC 08/26 PO 2151 Furosemide 40 MG 7:30 AM, & 4:30 PM 08/27 1630 AC PO Furosemide 40 MG 7:30 AM, & 4:30 PM 08/25 1630 DC 08/27 IV 0806 Multivitamins 1 TAB DAILY 08/25 1357 AC 08/27 PO 0806 Nystatin 1 VICENTA TID 08/26 0206 AC 08/27 TOP 0809 Oxycodone HCl 5 MG Q6P PRN 08/25 1400 AC PO Polyethylene Glycol 17 GM DAILY PRN 08/25 1415 AC PO Potassium Chloride 20 MEQ BID 08/26 1000 AC 08/27 PO 0807 Tamsulosin HCl 0.4 MG AT BEDTIME 08/25 2200 AC 08/26 PO 2151 Trazodone HCl 50 MG QPM PRN 08/25 1400 AC 08/26 PO 0020 Results Last 48 Hrs of Labs/Mics: Laboratory Tests 08/27/16 0800: Anion Gap 12, Estimated GFR > 60, BUN/Creatinine Ratio 30.0 H, CBC w Diff MAN DIFF ORDERED, RBC 2.54 L, MCV 95.6 H, MCH 31.7 H, RDW 24.0 H, MPV 8.1, Segmented Neutrophils 3 L, Band Neutrophils 2, Lymphocytes 94 H, Monocytes 1 L, Platelet Estimate DECREASED, Polychromasia 2+, Hypochromic-Microcytic 2+, Poikilocytosis 2+, Anisocytosis 2+, Ovalocytes 2+, Stomatocytes 1+, PUBS MCHC 33.2 08/26/16 2310: CBC w Diff MAN DIFF ORDERED, RBC 2.74 L, MCV 96.0 H, MCH 30.9, RDW 23.3 H, MPV 8.6, Segmented Neutrophils 1 L, Lymphocytes 98 H, Monocytes 1 L, PUBS MCHC 32.2 L, Fld Total RBCs Counted 100 08/26/16 0700: Anion Gap 13, Estimated GFR > 60, BUN/Creatinine Ratio 33.3 H, CBC w Diff MAN DIFF ORDERED, RBC 2.42 L, MCV 96.4 H, MCH 31.1 H, RDW 24.4 H, MPV 7.8, Segmented Neutrophils 5 L, Lymphocytes 95 H, Platelet Estimate DECREASED, Hypochromic-Microcytic 1+, Poikilocytosis 1+, Anisocytosis 1+, Ovalocytes FEW, Stomatocytes RARE, PUBS MCHC 32.2 L 08/26/16 0155: Troponin I < 0.01 08/25/16 2115: pH 7.49 H, pCO2 37, pO2 88, HCO3 27, ABG O2 Sat (Measured) 95.0 L, Carboxyhemoglobin 0.8 L, O2 Concentration % 50%, O2 Delivery Method V/M, Phlebotomy Draw Site RIGHT RADIAL 08/25/16 1830: Troponin I 0.02 08/25/16 1152: Urine Color YEL, Urine Clarity CLEAR, Urine pH 6.0, Ur Specific Kenney 1.015, Urine Protein NEG, Urine Ketones NEG, Urine Nitrite NEG, Urine Bilirubin NEG, Urine Urobilinogen 1.0, Ur Leukocyte Esterase NEG, Ur Microscopic SEDIMENT EXAMINED, Urine RBC RARE, Urine WBC RARE, Ur Epithelial Cells RARE, Urine Hemoglobin TRACE-LYSED H, Urine Glucose NEG 08/25/16 1144: Anion Gap 14, Estimated GFR > 60, BUN/Creatinine Ratio 36.7 H, Glucose 123 H, Calcium 8.1 L, Total Bilirubin 1.1, AST 22, ALT 22, Alkaline Phosphatase 78, Troponin I < 0.01, Reo-O-Ockxhfbfnlo Pept 4200 H, Total Protein 5.6 L, Albumin 2.9 L, Globulin 2.7, Albumin/Globulin Ratio 1.1, PT 13.9 H, INR 1.33 H, APTT 36, CBC w Diff MAN DIFF ORDERED, RBC 2.46 L, MCV 96.4 H, MCH 31.2 H, RDW 24.4 H, MPV 8.1, Segmented Neutrophils 3 L, Lymphocytes 93 H, Monocytes 4, Platelet Estimate DECREASED, Hypochromic-Microcytic 1+, Poikilocytosis 1+, Anisocytosis 1+, Ovalocytes 1+, PUBS MCHC 32.4 L Assessment/Plan Assessment/Plan Mr. Thomas has responded to IV Lasix. I think he can be switched to oral Lasix at this time. I would ambulate him and assess him for suitability of discharge home or perhaps short-term rehabilitation. Please call if any further cardiac input is needed. Continue telemetry? Not applicable
--- NOTE | 2016-08-27 13:45 | Patient Discharge Instructions ---
Discharge Instructions General Discharge Information You were seen/treated for: CHF decompensation Acute on chronic respiratory failure Special Instructions: please Follow up with Dr. Vera Please follow up with Dr. Gomez Please follow up With your PCP please follow up with Dr. Nolen Diet Continue normal diet: No Recommended Diet: Heart Healthy Activity Full Activity/No Limits: Yes Activity Self Limited: Yes Additional ACTIVITY Info: Risk of fall Acute Coronary Syndrome Inclusion Criteria At DC or during hospital stay patient has or had the following: ACS DIAGNOSIS No Discharge Core Measures Meds if any: Prescribed or Continued at Discharge Meds if any: NOT Prescribed or Continued at Discharge Congestive Heart Failure Inclusion Criteria At DC or during hospital stay patient has or had the following: CHF DIAGNOSIS No Discharge Core Measures Meds if any: Prescribed or Continued at Discharge Meds if any: NOT Prescribed or Continued at Discharge Cerebrovascular accident Inclusion Criteria At DC or during hospital stay patient has or had the following: CVA/TIA Diagnosis No Discharge Core Measures Meds if any: Prescribed or Continued at Discharge Meds if any: NOT Prescribed or Continued at Discharge Venous thromboembolism Inclusion Criteria VTE Diagnosis No VTE Type NONE VTE Confirmed by (Test) NONE Discharge Core Measures - Per Current guidelines, there needs to be overlap - treatment for the first 5 days of Warfarin therapy. - If discharged on Warfarin prior to 5 days of - overlap therapy, the patient will need to be - assessed for post discharge needs including - *Post discharge parental anticoagulation - *Warfarin and/or parental anticoagulation education - *Follow up date to check INR post discharge At least 5 days overlap therapy as Inpatient No Meds if any: Prescribed or Continued at Discharge Note: Overlap Therapy is Warfarin and Anticoagulant Meds if any: NOT Prescribed or Continued at Discharge
[2016-08-27 14:10] VITALS: BP 138/60
[2016-08-27 22:57] VITALS: BP 134/60
--- NOTE | 2016-08-28 05:33 | PN- Housestaff ---
Subjective Follow-up For: chf decompensation copd weakness and risk of fall Complaints: no complaints Subjective: Patient was visited and examined this morning. Patient does not offer any particular complaints. On 3 L of oxygen nasal cannula. sitting comfortably in his bed. No incident overnight. Vital signs were reviewed. Review of Systems Constitutional: Reports: see HPI, weakness. Denies: chills, diaphoresis, fever, malaise, unexplained weight loss. EENTM: Denies: blurred vision, double vision, visual changes, eye pain, eye drainage, eye tearing, icterus, ear discharge, ear pain, ear redness, hearing changes, nasal congestion, epistaxis, nasal pain, throat pain, throat swelling, mouth pain, tooth pain. Cardiovascular: Denies: chest pain, edema, orthopena, palpitations, peripheral edema, syncope. Respiratory: Denies: cough, hemoptysis, orthopnea, short of breath, sputum production, stridor, wheezing. Gastrointestinal: Denies: abdominal pain, bloating, constipation, diarrhea, distention, bowel incontinence, melena, nausea, bloody stool, changes in stool, vomiting, steatorrhea. Genitourinary: Denies: discharge, dysuria, frequency, hematuria, hesitation, nocturia, pain, urgency. Musculoskeletal: Denies: back pain, gout, joint pain, joint swelling, muscle pain, muscle stiffness, neck pain. Skin: Denies: cysts, change in skin color, change in hair/nails, dryness, erythema, jaundice, lesions, lymphangitis, lumps, moles, rash. Neurological/Psychological: Reports: weakness. Denies: anxiety, ataxia, cognitive dysfunction, confusion, depressed, dementia, emotional problems, headache, numbness, paresthesia, pre- existing deficit, petit mal seizures, tingling, tremors, tonic-clonic seizures, unable to move lower ext, unable to move upper ext, other. Objective Last 24 Hrs of Vital Signs/I&O Vital Signs Date Time Temp Pulse Resp B/P Pulse O2 O2 Flow FiO2 Ox Delivery Rate 08/28 0623 97.9 94 22 158/80 95 Nasal 3.0L Cannula 08/28 0007 68 93 08/28 0000 Nasal 3.0L Cannula 08/277 97.4 96 20 134/60 95 Nasal Cannula 08/276 97.7 95 20 134/60 08/27 1924 94 Nasal 4.0L Cannula 08/27 1600 Nasal 4.0L Cannula 08/27 1410 97.8 96 20 138/60 100 Nasal 2.0L Cannula 08/27 0910 98 Nasal 4.0L Cannula Intake & Output 08/28 0800 08/28 0000 08/27 1600 Intake Total 120 720 Output Total 650 300 850 Balance -650 -180 -130 Intake, Oral 120 720 Number 1 4 Bowel Movements Output, Urine 650 300 850 Patient 216 lb Weight Physical Exam General Appearance: Alert, Oriented X3, Cooperative Skin: No Rashes, No Breakdown, No Significant Lesion HEENT: Mucous Membr. moist/pink Neck: Supple, No JVD Lymphatic: Axillary nl, Cervical nl Cardiovascular: Normal S1, Normal S2, No Murmurs Lungs: decreased air movement Neurological: Normal Speech Extremities: No Edema Assessment/Plan Assessment: 76-year-old gentleman with past medical history significant for 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 Plan #1 worsening dyspnea on exertion and peripheral edema: Mostly due to CHF exacerbation (evident by elevated JVD and pulmonary congestion and peripheral edema and elevated proBNP) with some elements of COPD and asthma overlap syndrome exacerbation and worsened anemia. * tarnsferred to GM * Strict ins and outs control; maintain negative fluid balance * Continue by mouth Lasix 40 mg twice a day * Check electrolytes for renal function and potassium * Replete potassium with potassium chloride 20 mEq daily * O2 NC as tolerated; keep O2 sat above 90% * Christina O2 as tolerated * TRC/nebs [id number] as needed * Symbicort 2 puff twice a day * Proventil 3 mL 3 times a day as needed * short course steroid with prednisone 40 mg po x 5 days * Pulmonology recommendation * Received 1 unit of PRBC; per Hem/Onc, patient would benefit from transfusion; Currently Hgb above 8 mg/dl w/o any acute coronary issues; no urgent need to transfuse * Target Hgb is >8 mg/dl * In case of worsening respiratory status watch for the sings of overload and give extra dose of lasix if it was necessary * Follow Hem/oncology recommendation-will follow-up with the patient as an outpatient #2 chronic pain syndrome * Tylenol 650 mg every 6 as needed for mild pain * Roxicodone 5 mg every 6 as needed for severe pain * Voltran gel #3 gout Allopurinol 300 mg by mouth daily #4 BPH and incontinence * Continue Flomax 0.4 mg by mouth at bedtime * Continue finasteride 5 mg by mouth at bedtime #5 leukocytosis and thrombocytopenia-in the setting of pericellular leukemia- stable #6 atrial fibrillation not on anticoagulation-continue aspirin #7 hypokalemia: labs pending #8 Ambulation: daily PT- recommended short-term rehabilitation because of high risk of fall and weakness. Discharge summary CMR W10 are ready. Problem List: 1. COPD (chronic obstructive pulmonary disease) 2. Dyspnea 3. CLL (chronic lymphocytic leukemia) 4. BPH (benign prostatic hyperplasia) 5. Edema of left lower extremity 6. CHF (congestive heart failure) Pain Ratin Pain Location: Lower back Pain Goal: Pain 4 or less Pain Plan: Oxycodone Tomorrow's Labs & Rationales: BEP
[2016-08-28 06:23] VITALS: BP 158/80
[2016-08-28 08:52] LABS: HEMATOCRIT 22.7 % (42-52); MEAN CORPUSCULAR HGB 32.2 PG (27.0-31.0); MEAN CORPUSCULAR HGB CONC 33.3 G/DL (33.0-37.0); MEAN CORPUSCULAR VOLUME 96.6 FL (80.0-94.0); MEAN PLATELET VOLUME 9.1 FL (7.4-10.4); PLATELET COUNT 58 /CUMM (130-400); RBC DISTRIBUTION WIDTH 23.5 % (11.5-14.5); RED BLOOD CELL CT 2.35 /CUMM (4.70-6.10)
[2016-08-28 09:05] LABS: WHITE BLOOD CELL COUNT 118.5 /CUMM (4.8-10.8)
--- NOTE | 2016-08-28 13:21 | PN- Pulmonary ---
Subjective HPI/Critical Care Issues: Patient does not offer any particular complaints. On 3 L of oxygen nasal cannula. sitting comfortably in his bed. No incident overnight. Vital signs were reviewed. Review of Systems Constitutional: Reports: see HPI, weakness. Denies: chills, diaphoresis, fever, malaise, unexplained weight loss. EENTM: Denies: blurred vision, double vision, visual changes, eye pain, eye drainage, eye tearing, icterus, ear discharge, ear pain, ear redness, hearing changes, nasal congestion, epistaxis, nasal pain, throat pain, throat swelling, mouth pain, tooth pain. Cardiovascular: Denies: chest pain, edema, orthopena, palpitations, peripheral edema, syncope. Respiratory: Denies: cough, hemoptysis, orthopnea, short of breath, sputum production, stridor, wheezing. Gastrointestinal: Denies: abdominal pain, bloating, constipation, diarrhea, distention, bowel incontinence, melena, nausea, bloody stool, changes in stool, vomiting, steatorrhea. Genitourinary: Denies: discharge, dysuria, frequency, hematuria, hesitation, nocturia, pain, urgency. Musculoskeletal: Denies: back pain, gout, joint pain, joint swelling, muscle pain, muscle stiffness, neck pain. Skin: Denies: cysts, change in skin color, change in hair/nails, dryness, erythema, jaundice, lesions, lymphangitis, lumps, moles, rash. Neurological/Psychological: Reports: weakness. Denies: anxiety, ataxia, cognitive dysfunction, confusion, depressed, dementia, emotional problems, headache, numbness, paresthesia, pre- existing deficit, petit mal seizures, tingling, tremors, tonic-clonic seizures, unable to move lower ext, unable to move upper ext, other. Objective Current Medications: Current Medications Sig/Sherron Start time Last Medication Dose Route Stop Time Status Admin Acetaminophen 650 MG Q4P PRN 08/25 1630 AC PO Albuterol Sulfate 3 ML BID 08/25 2200 AC 08/28 INH 1020 Albuterol Sulfate 3 ML TID PRN 08/25 1400 AC 08/27 INH 1453 Allopurinol 300 MG DAILY 08/25 1355 AC 08/28 PO 0929 Aspirin 81 MG DAILY 08/26 1000 AC 08/28 PO 0929 Budesonide/ 2 PUF BID 08/25 1356 AC 08/28 Formoterol Fumarate INH 0929 Diclofenac Sodium 1 VICENTA DAILY PRN 08/25 1445 AC TOP Escitalopram Oxalate 20 MG DAILY 08/25 1355 AC 08/28 PO 0929 Finasteride 5 MG AT BEDTIME 08/27 2230 AC 08/27 PO 2352 Finasteride 5 MG AT BEDTIME 08/25 2200 DC 08/26 PO 2151 Furosemide 40 MG 7:30 AM, & 4:30 PM 08/27 1630 AC 08/28 PO 0929 Multivitamins 1 TAB DAILY 08/25 1357 AC 08/28 PO 0929 Nystatin 1 VICENTA TID 08/26 0206 AC 08/28 TOP 0929 Oxycodone HCl 5 MG Q6P PRN 08/25 1400 AC 08/28 PO 0936 Polyethylene Glycol 17 GM DAILY PRN 08/25 1415 AC PO Potassium Chloride 20 MEQ BID 08/26 1000 AC 08/28 PO 0929 Tamsulosin HCl 0.4 MG AT BEDTIME 08/25 2200 AC 08/27 PO 2206 Trazodone HCl 50 MG QPM PRN 08/25 1400 AC 08/26 PO 0020 Vital Signs & I&O Last 24 Hrs of Vitals and I&O: Vital Signs Date Time Temp Pulse Resp B/P Pulse O2 O2 Flow FiO2 Ox Delivery Rate 08/28 1023 93 Nasal 2.0L Cannula 08/28 06 97.9 94 22 158/80 95 Nasal 3.0L Cannula 08/28 0007 68 93 08/28 0000 Nasal 3.0L Cannula 08/27 2257 97.4 96 20 134/60 95 Nasal Cannula 08/27 2205 97.7 95 20 134/60 08/27 1924 94 Nasal 4.0L Cannula 08/27 1600 Nasal 4.0L Cannula 08/27 141 97.8 96 20 138/60 100 Nasal 2.0L Cannula Intake & Output 08/28 1600 08/28 0800 08/28 0000 Intake Total 120 120 Output Total 650 300 Balance -530 -180 Intake, Oral 120 120 Number 1 Bowel Movements Output, Urine 650 300 Patient 216 lb Weight Laboratory Tests 08/28 08/27 0615 0800 Chemistry Sodium (137 - 145 mmol/L) 139 140 Potassium (3.5 - 5.1 mmol/L) 3.9 3.6 Chloride (98 - 107 mmol/L) 98 98 Carbon Dioxide (22 - 30 mmol/L) 30 30 Anion Gap (5 - 16) 12 12 BUN (9 - 20 mg/dL) 24 H 27 H Creatinine (0.7 - 1.2 mg/dL) 0.8 0.9 Estimated GFR (>60 ml/min) > 60 > 60 BUN/Creatinine Ratio (7 - 25 %) 30.0 H 30.0 H Hematology CBC w Diff MAN DIFF ORDERED MAN DIFF ORDERED WBC (4.8 - 10.8 /CUMM) 118.5 *H 129.6 *H RBC (4.70 - 6.10 /CUMM) 2.35 L 2.54 L Hgb (14.0 - 18.0 G/DL) 7.6 L 8.1 L Hct (42 - 52 %) 22.7 L 24.3 L MCV (80.0 - 94.0 FL) 96.6 H 95.6 H MCH (27.0 - 31.0 PG) 32.2 H 31.7 H RDW (11.5 - 14.5 %) 23.5 H 24.0 H Plt Count (130 - 400 /CUMM) 58 L 58 L MPV (7.4 - 10.4 FL) 9.1 8.1 Segmented Neutrophils (42.2 - 75.2 %) 2 L 3 L Band Neutrophils (0.0 - 5.0 %) 2 Lymphocytes (20.5 - 51.1 %) 97 H 94 H Monocytes (1.7 - 9.3 %) 1 L 1 L Nucleated RBCs (0.0 - 0.0 /100WBC) 1 H Platelet Estimate (ADEQUATE) DECREASED DECREASED Polychromasia 1+ 2+ Hypochromic-Microcytic 2+ Poikilocytosis 2+ 2+ Anisocytosis 1+ 2+ Ovalocytes 2+ 2+ Stomatocytes 1+ PUBS MCHC (33.0 - 37.0 G/DL) 33.3 33.2 08/26 2310 Hematology CBC w Diff MAN DIFF ORDERED WBC (4.8 - 10.8 /CUMM) 138.2 *H RBC (4.70 - 6.10 /CUMM) 2.74 L Hgb (14.0 - 18.0 G/DL) 8.4 L Hct (42 - 52 %) 26.3 L MCV (80.0 - 94.0 FL) 96.0 H MCH (27.0 - 31.0 PG) 30.9 RDW (11.5 - 14.5 %) 23.3 H Plt Count (130 - 400 /CUMM) 67 L MPV (7.4 - 10.4 FL) 8.6 Segmented Neutrophils (42.2 - 75.2 %) 1 L Lymphocytes (20.5 - 51.1 %) 98 H Monocytes (1.7 - 9.3 %) 1 L PUBS MCHC (33.0 - 37.0 G/DL) 32.2 L Other Body Source Fld Total RBCs Counted (%) 100 Microbiology Date/Time Procedure - Status Source Growth 08/26 1036 Respiratory Culture - CAN LOWER RESP Cancelled: NO SPUTUM COLLECTED FOR MICRO DEPT. 08/26 1036 Gram Stain - CAN LOWER RESP Cancelled: NO SPUTUM COLLECTED FOR MICRO DEPT. 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 There may be a component of high output failure as he is significantly more anemic. Patient's congestive heart failure and respiratory status appears improved Recommendations: Taper FiO2 his saturations allow. Continue negative fluid balance leg elevation.
[2016-08-28 15:25] VITALS: BP 100/60
--- NOTE | 2016-08-28 15:26 | PN- Att Addend ---
Attending MD Review Statement Attending Statement Attending MD Statement: examined this patient, discuss w/resident/PA/REPOSSESSION AGENT, agreed w/resident/PA/REPOSSESSION AGENT, reviewed EMR data (avail), discussed w/nursing Attending Assessment/Plan: Patient seen and examined at bedside and discussed with him the care plan. Agree with the resident's note. High-output heart failure with preserved ejection fraction and some component of diastolic dysfunction. Continue with Lasix 40 Mg by mouth twice a day. Continue to monitor him closely for any decompensation. Deconditioning-plan is to discharge patient to subacute rehabilitation. Patient awaiting placement into a rehabilitation facility. Discussed with patient the care plan.
[2016-08-28 22:25] VITALS: BP 120/60
[2016-08-29 06:34] VITALS: BP 114/60
--- NOTE | 2016-08-29 08:33 | PN- Housestaff ---
Subjective Follow-up For: chf copd weakness and risk of fall Subjective: seen and examined pt. offers no complaints. No overnight events reportes Review of Systems Constitutional: Denies: chills, diaphoresis, fever, malaise, weakness, unexplained weight loss. Cardiovascular: Denies: chest pain, edema, orthopena, palpitations, peripheral edema, syncope. Respiratory: Denies: no symptoms, see HPI. Objective Last 24 Hrs of Vital Signs/I&O Vital Signs Date Time Temp Pulse Resp B/P Pulse O2 O2 Flow FiO2 Ox Delivery Rate 08/29 1055 98 Nasal 3.0L Cannula 08/29 1029 Nasal 3.0L Cannula 08/29 1018 Nasal 3.0L Cannula 08/29 0634 98.1 83 22 114/60 92 Nasal Cannula 08/29 0000 Nasal 3.0L Cannula 08/28 2225 97.8 90 24 120/60 94 Nasal Cannula 08/28 2114 58 96 08/28 202 92 104/60 08/28 2010 94 Nasal 2.0L Cannula 08/28 1525 97.7 90 24 100/60 97 Intake & Output 08/29 1600 08/29 0800 08/29 0000 Intake Total 620 90 Output Total 500 680 Balance 120 -590 Intake, IV 0 Intake, Oral 620 90 Number 0 Bowel Movements Output, Urine 500 680 Patient 195 lb Weight Physical Exam General Appearance: Alert, Oriented X3, Cooperative, No Acute Distress Cardiovascular: Normal S1, Normal S2 Extremities: +1 b/l edema Current Medications: Current Medications Sig/Sherron Start time Last Medication Dose Route Stop Time Status Admin Acetaminophen 650 MG Q4P PRN 08/25 1630 AC PO Albuterol Sulfate 3 ML BID 08/25 2200 AC 08/29 INH 1050 Albuterol Sulfate 3 ML TID PRN 08/25 1400 AC 08/27 INH 1453 Allopurinol 300 MG DAILY 08/25 1355 AC 08/29 PO 0830 Aspirin 81 MG DAILY 08/26 1000 AC 08/29 PO 0831 Budesonide/ 2 PUF BID 08/25 1356 AC 08/29 Formoterol Fumarate INH 0831 Diclofenac Sodium 1 VICENTA DAILY PRN 08/25 1445 AC TOP Escitalopram Oxalate 20 MG DAILY 08/25 1355 AC 08/29 PO 0830 Finasteride 5 MG AT BEDTIME 08/27 2230 AC 08/28 PO 202 Furosemide 40 MG 7:30 AM, & 4:30 PM 08/27 1630 AC 08/29 PO 0647 Multivitamins 1 TAB DAILY 08/25 1357 AC 08/29 PO 0830 Nystatin 1 VICENTA TID 08/26 0206 AC 08/29 TOP 0831 Oxycodone HCl 5 MG Q6P PRN 08/25 1400 AC 08/28 PO 0936 Polyethylene Glycol 17 GM DAILY PRN 08/25 1415 AC 08/29 PO 0831 Potassium Chloride 20 MEQ BID 08/26 1000 AC 08/29 PO 0831 Tamsulosin HCl 0.4 MG AT BEDTIME 08/25 2200 AC 08/28 PO 2023 Trazodone HCl 50 MG QPM PRN 08/25 1400 AC 08/26 PO 0020 Last 24 Hrs of Lab/Jordi Results Last 24 Hrs of Labs/Mics: Laboratory Tests 08/29/16 0653: CBC w Diff MAN DIFF ORDERED, RBC 2.50 L, MCV 97.3 H, MCH 32.1 H, RDW 23.4 H, MPV 9.2, Segmented Neutrophils 2 L, Lymphocytes 94 H, Monocytes 4, Nucleated RBCs 1 H, Platelet Estimate DECREASED, Polychromasia 1+, Poikilocytosis 2+, Anisocytosis 1+, Ovalocytes 2+, PUBS MCHC 33.0 Assessment/Plan Assessment: 76-year-old gentleman with past medical history significant for 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 Plan CHF exacerbation * Strict ins and outs control; maintain negative fluid balance * Continue by mouth Lasix 40 mg twice a day * Christina O2 as tolerated * TRC/nebs [id number] as needed * Symbicort 2 puff twice a day * Proventil 3 mL 3 times a day as needed * short course steroid with prednisone 40 mg po x 5 days * Pulmonology recommendation * Received 1 unit of PRBC; today 8.2/24.3 * Target Hgb is >8 mg/dl * In case of worsening respiratory status watch for the fluid overload * Hem/oncology recommendation-will follow-up with the patient as an outpatient #2 chronic pain syndrome * Tylenol 650 mg every 6 as needed for mild pain * Roxicodone 5 mg every 6 as needed for severe pain * Voltran gel #3 gout Allopurinol 300 mg by mouth daily #4 BPH and incontinence * Continue Flomax 0.4 mg by mouth at bedtime * Continue finasteride 5 mg by mouth at bedtime #5 leukocytosis and thrombocytopenia-in the setting of pericellular leukemia- stable #6 atrial fibrillation not on anticoagulation-continue aspirin on heart healthy diet dvt ppx ALPS DNR/DNI Problem List: 1. COPD (chronic obstructive pulmonary disease) 2. CHF (congestive heart failure) 3. CLL (chronic lymphocytic leukemia) Pain Ratin Pain Location: na Pain Goal: Pain 4 or less Pain Plan: current regimen Tomorrow's Labs & Rationales: cbc/bep
--- NOTE | 2016-08-29 08:37 | PN- Housestaff ---
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 Plan #1 worsening dyspnea on exertion and peripheral edema: Mostly due to CHF exacerbation (evident by elevated JVD and pulmonary congestion and peripheral edema and elevated proBNP) with some elements of COPD and asthma overlap syndrome exacerbation and worsened anemia. * tarnsferred to * Strict ins and outs control; maintain negative fluid balance * Continue by mouth Lasix 40 mg twice a day * Check electrolytes for renal function and potassium * Replete potassium with potassium chloride 20 mEq daily * O2 NC as tolerated; keep O2 sat above 90% * Christina O2 as tolerated * TRC/nebs [id number] as needed * Symbicort 2 puff twice a day * Proventil 3 mL 3 times a day as needed * short course steroid with prednisone 40 mg po x 5 days * Pulmonology recommendation * Received 1 unit of PRBC; per Hem/Onc, patient would benefit from transfusion; Currently Hgb above 8 mg/dl w/o any acute coronary issues; no urgent need to transfuse * Target Hgb is >8 mg/dl * In case of worsening respiratory status watch for the sings of overload and give extra dose of lasix if it was necessary * Follow Hem/oncology recommendation-will follow-up with the patient as an outpatient #2 chronic pain syndrome * Tylenol 650 mg every 6 as needed for mild pain * Roxicodone 5 mg every 6 as needed for severe pain * Voltran gel #3 gout Allopurinol 300 mg by mouth daily #4 BPH and incontinence * Continue Flomax 0.4 mg by mouth at bedtime * Continue finasteride 5 mg by mouth at bedtime #5 leukocytosis and thrombocytopenia-in the setting of pericellular leukemia- stable #6 atrial fibrillation not on anticoagulation-continue aspirin #7 hypokalemia: labs pending #8 Ambulation: daily PT- recommended short-term rehabilitation because of high risk of fall and weakness. Discharge summary CMR W10 are ready.
[2016-08-29 09:04] LABS: HEMATOCRIT 24.3 % (42-52); MEAN CORPUSCULAR HGB 32.1 PG (27.0-31.0); MEAN CORPUSCULAR VOLUME 97.3 FL (80.0-94.0); MEAN PLATELET VOLUME 9.2 FL (7.4-10.4); PLATELET COUNT 70 /CUMM (130-400); RBC DISTRIBUTION WIDTH 23.4 % (11.5-14.5)
--- NOTE | 2016-08-29 10:39 | PN- Pulmonary ---
Subjective HPI/Critical Care Issues: Doing well this morning Sitting up in bed Saying that his breathing is improved He's been diuresing No nausea vomiting diarrhea Review of symptoms otherwise unremarkable Objective Current Medications: Current Medications Sig/Sherron Start time Last Medication Dose Route Stop Time Status Admin Acetaminophen 650 MG Q4P PRN 08/25 1630 AC PO Albuterol Sulfate 3 ML BID 08/25 2200 AC 08/29 INH 0230 Albuterol Sulfate 3 ML TID PRN 08/25 1400 AC 08/27 INH 1453 Allopurinol 300 MG DAILY 08/25 1355 AC 08/29 PO 0830 Aspirin 81 MG DAILY 08/26 1000 AC 08/29 PO 0831 Budesonide/ 2 PUF BID 08/25 1356 AC 08/29 Formoterol Fumarate INH 0831 Diclofenac Sodium 1 VICENTA DAILY PRN 08/25 1445 AC TOP Escitalopram Oxalate 20 MG DAILY 08/25 1355 AC 08/29 PO 0830 Finasteride 5 MG AT BEDTIME 08/27 2230 AC 08/28 PO 2022 Furosemide 40 MG 7:30 AM, & 4:30 PM 08/27 1630 AC 08/29 PO 0647 Multivitamins 1 TAB DAILY 08/25 1357 AC 08/29 PO 0830 Nystatin 1 VICENTA TID 08/26 0206 AC 08/29 TOP 0831 Oxycodone HCl 5 MG Q6P PRN 08/25 1400 AC 08/28 PO 0936 Polyethylene Glycol 17 GM DAILY PRN 08/25 1415 AC 08/29 PO 0831 Potassium Chloride 20 MEQ BID 08/26 1000 AC 08/29 PO 0831 Tamsulosin HCl 0.4 MG AT BEDTIME 08/25 2200 AC 08/28 PO 2023 Trazodone HCl 50 MG QPM PRN 08/25 1400 AC 08/26 PO 0020 Vital Signs & I&O Last 24 Hrs of Vitals and I&O: Vital Signs Date Time Temp Pulse Resp B/P Pulse O2 O2 Flow FiO2 Ox Delivery Rate 08/29 1029 Nasal 3.0L Cannula 08/29 1018 Nasal 3.0L Cannula 08/29 0634 98.1 83 22 114/60 92 Nasal Cannula 08/29 0000 Nasal 3.0L Cannula 08/28 2224 97.8 90 24 120/60 94 Nasal Cannula 08/28 2113 58 96 08/28 2022 92 104/60 08/28 2009 94 Nasal 2.0L Cannula 08/28 1525 97.7 90 24 100/60 97 Intake & Output 08/29 1600 08/29 0800 08/29 0000 Intake Total 620 90 Output Total 500 680 Balance 120 -590 Intake, IV 0 Intake, Oral 620 90 Number 0 Bowel Movements Output, Urine 500 680 Patient 195 lb Weight Laboratory Tests 08/29 08/28 0653 0615 Chemistry Sodium (137 - 145 mmol/L) 139 Potassium (3.5 - 5.1 mmol/L) 3.9 Chloride (98 - 107 mmol/L) 98 Carbon Dioxide (22 - 30 mmol/L) 30 Anion Gap (5 - 16) 12 BUN (9 - 20 mg/dL) 24 H Creatinine (0.7 - 1.2 mg/dL) 0.8 Estimated GFR (>60 ml/min) > 60 BUN/Creatinine Ratio (7 - 25 %) 30.0 H Hematology CBC w Diff MAN DIFF ORDERED MAN DIFF ORDERED WBC (4.8 - 10.8 /CUMM) 137.0 *H 118.5 *H RBC (4.70 - 6.10 /CUMM) 2.50 L 2.35 L Hgb (14.0 - 18.0 G/DL) 8.0 L 7.6 L Hct (42 - 52 %) 24.3 L 22.7 L MCV (80.0 - 94.0 FL) 97.3 H 96.6 H MCH (27.0 - 31.0 PG) 32.1 H 32.2 H RDW (11.5 - 14.5 %) 23.4 H 23.5 H Plt Count (130 - 400 /CUMM) 70 L 58 L MPV (7.4 - 10.4 FL) 9.2 9.1 Segmented Neutrophils (42.2 - 75.2 %) 2 L 2 L Lymphocytes (20.5 - 51.1 %) 94 H 97 H Monocytes (1.7 - 9.3 %) 4 1 L Nucleated RBCs (0.0 - 0.0 /100WBC) 1 H 1 H Platelet Estimate (ADEQUATE) DECREASED DECREASED Polychromasia 1+ 1+ Poikilocytosis 2+ 2+ Anisocytosis 1+ 1+ Ovalocytes 2+ 2+ PUBS MCHC (33.0 - 37.0 G/DL) 33.0 33.3 Impression/Plan Impression/Plan Impression/Plan: Physical Exam: he appears chronically ill but in no distress HEENT exam is normal Chest is clear Heart reveals irregular rhythm with soft heart sounds and no murmurs Abdomen reveals marked splenomegaly Extremities reveal 1-2+ edema of the lower extremities 76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 There may be a component of high output failure Patient's congestive heart failure and respiratory status appears improved Recommendations: Taper FiO2 his saturations allow. Continue negative fluid balance leg elevation.
--- NOTE | 2016-08-29 12:28 | PN- Cardiology ---
Subjective Subjective: No specific complaints. Feels as though he is able to mobilize his secretions better today. He also feels as though his bilateral lower extremity edema has improved Objective Vital Signs and I&Os Vital Signs Date Time Temp Pulse Resp B/P Pulse O2 O2 Flow FiO2 Ox Delivery Rate 08/29 1055 98 Nasal 3.0L Cannula 08/29 1029 Nasal 3.0L Cannula 08/29 1018 Nasal 3.0L Cannula 08/29 0634 98.1 83 22 114/60 92 Nasal Cannula 08/29 0000 Nasal 3.0L Cannula 08/28 2225 97.8 90 24 120/60 94 Nasal Cannula 08/28 2114 58 96 08/28 2023 92 104/60 08/28 2010 94 Nasal 2.0L Cannula 08/28 1525 97.7 90 24 100/60 97 Intake & Output 08/29 1600 08/29 0800 08/29 0000 08/28 1600 08/28 0800 08/28 0000 Intake Total 755 46 2617 120 120 Output Total 500 680 300 650 300 Balance 120 -590 800 -530 -180 Intake, IV 0 Intake, Oral 892 58 0848 120 120 Number 0 1 Bowel Movements Output, Urine 500 680 300 650 300 Patient 195 lb 216 lb Weight Physical Exam: Well-developed, elderly pale appearing male in no acute distress with nasal oxygen in place. Vital signs: See above. Lungs: Decreased breath sounds bilaterally, otherwise clear. Heart: Irregular rhythm, S1, S2 (both distant) with no murmur, gallop, rub appreciated. Abdomen: Soft, positive bowel sounds, nontender with marked splenomegaly Extremities: 1-2+ bilateral lower extremity edema with chronic stasis changes. Assessment/Plan Assessment/Plan Mr. Thomas improved following intravenous furosemide and has been switched to oral furosemide which will be continued with close follow-up of his renal function, potassium, magnesium, etc. He states that he is ambulating without difficulty. There do not appear to be any new cardiac issues. Anticipate discharge soon. Please call if any further cardiac related problems. Continue telemetry? Not applicable Continue telemetry? No
[2016-08-29 14:06] VITALS: BP 106/60
--- NOTE | 2016-08-29 16:43 | PN- Att Addend ---
Attending MD Review Statement Attending Statement Attending MD Statement: examined this patient, discuss w/resident/PA/NOZZLE OPERATOR, agreed w/resident/PA/NOZZLE OPERATOR, discussed with family, reviewed EMR data (avail), discussed w/ nursing Attending Assessment/Plan: CHF- acute on chronic diastolic heart failure and high output heart failure. Echocardiogram done in June 2016 showed-Right ventricular systolic pressure estimated to be elevated at 45- 50 mmHg and mild to moderate concentric left ventricular hypertrophy. We will continue the patient on Lasix current dose. Deconditioning-plan is to discharge patient to subacute rehabilitation. Patient awaiting placement into a rehabilitation facility. Discussed with patient and his at bedside the care plan.
[2016-08-29 22:41] VITALS: BP 110/60
[2016-08-30 05:43] VITALS: BP 112/60
--- NOTE | 2016-08-30 07:57 | PN- Pulmonary ---
Subjective HPI/Critical Care Issues: Patient is comfortable shortness of breath is improved as has edema. Congestive heart failure on radiographs has resolved Objective Current Medications: Current Medications Sig/Sherron Start time Last Medication Dose Route Stop Time Status Admin Acetaminophen 650 MG Q4P PRN 08/25 1630 AC PO Albuterol Sulfate 3 ML BID 08/25 2200 AC 08/29 INH 1945 Albuterol Sulfate 3 ML TID PRN 08/25 1400 AC 08/27 INH 1453 Allopurinol 300 MG DAILY 08/25 1355 AC 08/29 PO 0830 Aspirin 81 MG DAILY 08/26 1000 AC 08/29 PO 0831 Budesonide/ 2 PUF BID 08/25 1356 AC 08/29 Formoterol Fumarate INH 2056 Diclofenac Sodium 1 VICENTA DAILY PRN 08/25 1445 AC TOP Escitalopram Oxalate 20 MG DAILY 08/25 1355 AC 08/29 PO 0830 Finasteride 5 MG AT BEDTIME 08/27 2230 AC 08/29 PO 2056 Furosemide 40 MG 7:30 AM, & 4:30 PM 08/27 1630 AC 08/30 PO 0612 Multivitamins 1 TAB DAILY 08/25 1357 AC 08/29 PO 0830 Nystatin 1 VICENTA TID 08/26 0206 DC 08/29 TOP 2056 Oxycodone HCl 5 MG Q6P PRN 08/25 1400 AC 08/29 PO 2100 Polyethylene Glycol 17 GM DAILY PRN 08/25 1415 AC 08/29 PO 0831 Potassium Chloride 20 MEQ BID 08/26 1000 AC 08/29 PO 2056 Tamsulosin HCl 0.4 MG AT BEDTIME 08/25 2200 AC 08/29 PO 2056 Trazodone HCl 50 MG QPM PRN 08/25 1400 AC 08/26 PO 0020 Vital Signs & I&O Last 24 Hrs of Vitals and I&O: Vital Signs Date Time Temp Pulse Resp B/P Pulse O2 O2 Flow FiO2 Ox Delivery Rate 08/30 0543 97.6 69 20 112/60 93 Nasal 3.0L Cannula 08/30 0000 98 Nasal 3.0L Cannula 08/29 2241 97.1 61 20 110/60 98 Nasal Cannula 08/29 2224 58 96 08/29 1945 95 Nasal 3.0L Cannula 08/29 1406 96.6 60 22 106/60 98 Nasal 3.0L Cannula 08/29 1055 98 Nasal 3.0L Cannula 08/29 1029 Nasal 3.0L Cannula 08/29 1018 Nasal 3.0L Cannula 08/29 0800 98 Nasal 3.0L Cannula Intake & Output 08/30 0800 08/30 0000 08/29 1600 Intake Total 300 0 480 Output Total 400 300 Balance 300 -400 180 Intake, Oral 300 0 480 Output, Urine 400 300 Patient 160 lb Weight Impression/Plan Impression/Plan Impression/Plan: 76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 There may be a component of high output failure as he is significantly more anemic. Patient' s congestive heart failure and respiratory status appears improved Recommendations: Taper FiO2 his saturations allow. Continue negative fluid balance leg elevation. Assess for need for short-term rehabilitation.
--- NOTE | 2016-08-30 08:07 | PN- Housestaff ---
JOSE EMAXIMILIANO 08/30/16 0806: Subjective Follow-up For: CHF decompensation COPD Complaints: no complaints Subjective: Patient was visited and examined with me. He is sitting in his bed and eating. He decided to accept the recommendation for STR. Vs are stable. No incident overnight and over weekened. Review of Systems Constitutional: Denies: chills, diaphoresis, fever, malaise, weakness, unexplained weight loss. EENTM: Denies: blurred vision, double vision, visual changes, eye pain, eye drainage, eye tearing, icterus, ear discharge, ear pain, ear redness, hearing changes, nasal congestion, epistaxis, nasal pain, throat pain, throat swelling, mouth pain, tooth pain. Cardiovascular: Reports: edema. Denies: chest pain, orthopena, palpitations, peripheral edema, syncope. Respiratory: Reports: cough, short of breath. Denies: hemoptysis, orthopnea, sputum production, stridor, wheezing. Gastrointestinal: Denies: abdominal pain, bloating, constipation, diarrhea, distention, bowel incontinence, melena, nausea, bloody stool, changes in stool, vomiting, steatorrhea. Genitourinary: Denies: discharge, dysuria, frequency, hematuria, hesitation, nocturia, pain, urgency. Objective Last 24 Hrs of Vital Signs/I&O Vital Signs Date Time Temp Pulse Resp B/P Pulse O2 O2 Flow FiO2 Ox Delivery Rate 08/30 0543 97.6 69 20 112/60 93 Nasal 3.0L Cannula 08/30 0000 98 Nasal 3.0L Cannula 08/29 2241 97.1 61 20 110/60 98 Nasal Cannula 08/29 2224 58 96 08/29 1945 95 Nasal 3.0L Cannula 08/29 1406 96.6 60 22 106/60 98 Nasal 3.0L Cannula 08/29 1055 98 Nasal 3.0L Cannula 08/29 1029 Nasal 3.0L Cannula 08/29 1018 Nasal 3.0L Cannula Intake & Output 08/30 1600 08/30 0800 08/30 0000 Intake Total 300 0 Output Total 400 Balance 300 -400 Intake, Oral 300 0 Output, Urine 400 Patient 160 lb Weight Physical Exam General Appearance: Alert, Oriented X3, Cooperative, No Acute Distress Skin: No Rashes, No Breakdown, No Significant Lesion HEENT: Atraumatic, PERRLA, EOMI, Mucous Membr. moist/pink Neck: Supple, No JVD, No thryomegaly Lymphatic: Axillary nl, Cervical nl Cardiovascular: Normal S1, Normal S2, No Murmurs Lungs: diffuse crackles , scattered wheeze Abdomen: Soft Neurological: unsteady gate, mild motor weakness of the lower extremities Extremities: +1 B/L pittin pedal edema edema Current Medications: Current Medications Sig/Sherron Start time Last Medication Dose Route Stop Time Status Admin Acetaminophen 650 MG Q4P PRN 08/25 1630 AC PO Albuterol Sulfate 3 ML BID 08/25 2200 AC 08/29 INH 1945 Albuterol Sulfate 3 ML TID PRN 08/25 1400 AC 08/27 INH 1453 Allopurinol 300 MG DAILY 08/25 1355 AC 08/29 PO 0830 Aspirin 81 MG DAILY 08/26 1000 AC 08/29 PO 0831 Budesonide/ 2 PUF BID 08/25 1356 AC 08/29 Formoterol Fumarate INH 205 Diclofenac Sodium 1 VICENTA DAILY PRN 08/25 1445 AC TOP Escitalopram Oxalate 20 MG DAILY 08/25 1355 AC 08/29 PO 0830 Finasteride 5 MG AT BEDTIME 08/27 2230 AC 08/29 PO 2056 Furosemide 40 MG 7:30 AM, & 4:30 PM 08/27 1630 AC 08/30 PO 0612 Multivitamins 1 TAB DAILY 08/25 1357 AC 08/29 PO 0830 Nystatin 1 VICENTA TID 08/26 0206 DC 08/29 TOP 2056 Oxycodone HCl 5 MG Q6P PRN 08/25 1400 AC 08/29 PO 2100 Polyethylene Glycol 17 GM DAILY PRN 08/25 1415 AC 08/29 PO 0831 Potassium Chloride 20 MEQ BID 08/26 1000 AC 08/29 PO 205 Tamsulosin HCl 0.4 MG AT BEDTIME 08/25 2200 AC 08/29 PO 205 Trazodone HCl 50 MG QPM PRN 08/25 1400 AC 08/26 PO 0020 Last 24 Hrs of Lab/Jordi Results Last 24 Hrs of Labs/Mics: Laboratory Tests 08/30/16 0634: Sodium Pending, Potassium Pending, Chloride Pending, Carbon Dioxide Pending, Anion Gap Pending, BUN Pending, Creatinine Pending, BUN/Creatinine Ratio Pending , Magnesium Pending, CBC w Diff Pending, WBC Pending, RBC Pending, Hgb Pending, Hct Pending, MCV Pending, MCH Pending, RDW Pending, Plt Count Pending, MPV Pending, PUBS MCHC Pending Assessment/Plan Assessment: 76-year-old gentleman with past medical history significant for 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 Plan CHF exacerbation * Strict ins and outs control; maintain negative fluid balance * Continue by mouth Lasix 40 mg twice a day * Christina O2 as tolerated * TRC/nebs [id number] as needed * Symbicort 2 puff twice a day * Proventil 3 mL 3 times a day as needed * short course steroid with prednisone 40 mg po x 5 days #2 chronic pain syndrome * Tylenol 650 mg every 6 as needed for mild pain * Roxicodone 5 mg every 6 as needed for severe pain * Voltran gel #3 gout Allopurinol 300 mg by mouth daily #4 BPH and incontinence * Continue Flomax 0.4 mg by mouth at bedtime * Continue finasteride 5 mg by mouth at bedtime #5 leukocytosis and thrombocytopenia-in the setting of pericellular leukemia- stable #6 atrial fibrillation not on anticoagulation-continue aspirin #7 Generalized weakness and high risk of fall * D/C to STR on heart healthy diet dvt ppx ALPS DNR/DNI Problem List: 1. CHF (congestive heart failure) 2. Dyspnea 3. CLL (chronic lymphocytic leukemia) 4. BPH (benign prostatic hyperplasia) 5. COPD (chronic obstructive pulmonary disease) Pain Ratin Pain Location: back Pain Goal: Pain 4 or less Pain Plan: oxycodone Tomorrow's Labs & Rationales: none Discharge Plan Discharge Disposition: STR/NH Stable for Discharge? Yes DARIN LERMA MD 08/30/16 1128: Attending MD Review Statement Attending Statement Attending Statement: examined this patient, discuss w/resident/PA/COKE BURNER, agreed w/resident/PA/COKE BURNER, reviewed EMR data (avail), discussed with nursing, discussed with case mgmt, reviewed images, amended to note Attending Assessment/Plan: Patient seen and examined, offers no complaints. Wants to get out of here. Patient is a 76 y/o M with pmh sig for chronic diastolic congestive heart failure, A. 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 Patient had diuresed well with initially IV diuresis and now on oral lasix. Vital Signs Date Time Temp Pulse Resp B/P Pulse O2 O2 Flow FiO2 Ox Delivery Rate 08/30 0543 97.6 69 20 112/60 93 Nasal 3.0L Cannula 08/30 0000 98 Nasal 3.0L Cannula 08/29 2241 97.1 61 20 110/60 98 Nasal Cannula 08/29 2224 58 96 08/29 1945 95 Nasal 3.0L Cannula 08/29 1406 96.6 60 22 106/60 98 Nasal 3.0L Cannula on exam; aox3, nad. very hard of hearing. cv: s1,s2, irregular. resp; some crackles left base. abd; soft, nt, bs+ ext; 2+ edema b/l Laboratory Tests 08/30 0634 Chemistry Sodium (137 - 145 mmol/L) 139 Potassium (3.5 - 5.1 mmol/L) 4.2 Chloride (98 - 107 mmol/L) 99 Carbon Dioxide (22 - 30 mmol/L) 32 H Anion Gap (5 - 16) 8 BUN (9 - 20 mg/dL) 22 H Creatinine (0.7 - 1.2 mg/dL) 0.9 Estimated GFR (>60 ml/min) > 60 BUN/Creatinine Ratio (7 - 25 %) 24.4 Magnesium (1.6 - 2.3 mg/dL) 2.1 Hematology CBC w Diff MAN DIFF ORDERED WBC (4.8 - 10.8 /CUMM) 131.4 *H RBC (4.70 - 6.10 /CUMM) 2.49 L Hgb (14.0 - 18.0 G/DL) 7.9 L Hct (42 - 52 %) 24.3 L MCV (80.0 - 94.0 FL) 97.6 H MCH (27.0 - 31.0 PG) 31.6 H RDW (11.5 - 14.5 %) 24.4 H Plt Count (130 - 400 /CUMM) 71 L MPV (7.4 - 10.4 FL) 8.3 Gran % (42.2 - 75.2 %) 9.8 L Lymphocytes % (20.5 - 51.1 %) 58.7 H Monocytes % (1.7 - 9.3 %) 31.5 H Eosinophils % (0 - 5 %) 0 Basophils % (0.0 - 2.0 %) 0 L Absolute Granulocytes (1.4 - 6.5 /CUMM) 12.8 H Segmented Neutrophils (42.2 - 75.2 %) 5 L Absolute Lymphocytes (1.2 - 3.4 /CUMM) 77.1 H Lymphocytes (20.5 - 51.1 %) 90 H Monocytes (1.7 - 9.3 %) 5 Absolute Monocytes (0.10 - 0.60 /CUMM) 41.5 H Absolute Eosinophils (0.0 - 0.7 /CUMM) 0 Absolute Basophils (0.0 - 0.2 /CUMM) 0 Nucleated RBCs (0.0 - 0.0 /100WBC) 1 H Platelet Estimate (ADEQUATE) DECREASED Polychromasia 1+ Hypochromic-Microcytic 1+ Poikilocytosis FEW Anisocytosis 1+ Ovalocytes 2+ PUBS MCHC (33.0 - 37.0 G/DL) 32.4 L A/P; Patient is a 76 y/o M with pmh sig for chronic diastolic congestive heart failure, A. 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 Patient had diuresed well with initially IV diuresis and now on oral lasix. Continue current treatment. Patient is awaiting bed availability at rehabilitation. As soon as there is a bed available, patient can be discharged. For DVT prophylaxis patient is on ALPS 2/2 to thrombocytopenia.
[2016-08-30 08:29] LABS: ABSOLUTE EOSINOPHIL COUNT 0 /CUMM (0.0-0.7); EOSINOPHIL % 0 % (0-5)
[2016-08-30 08:57] LABS: ABSOLUTE BASOPHIL COUNT 0 /CUMM (0.0-0.2); ABSOLUTE GRANULOCYTE CT 12.8 /CUMM (1.4-6.5); ABSOLUTE LYMPH COUNT 77.1 /CUMM (1.2-3.4); ABSOLUTE MONOCYTE COUNT 41.5 /CUMM (0.10-0.60); BASOPHIL % 0 % (0.0-2.0); HEMATOCRIT 24.3 % (42-52); MEAN CORPUSCULAR HGB 31.6 PG (27.0-31.0); MEAN CORPUSCULAR HGB CONC 32.4 G/DL (33.0-37.0); MEAN CORPUSCULAR VOLUME 97.6 FL (80.0-94.0); MEAN PLATELET VOLUME 8.3 FL (7.4-10.4); PLATELET COUNT 71 /CUMM (130-400); RBC DISTRIBUTION WIDTH 24.4 % (11.5-14.5); RED BLOOD CELL CT 2.49 /CUMM (4.70-6.10)
[2016-08-30 09:12] LABS: GRANULOCYTE % 9.8 % (42.2-75.2); WHITE BLOOD CELL COUNT 131.4 /CUMM (4.8-10.8)
[2016-08-30 14:17] VITALS: BP 100/64
[2016-08-30 22:29] VITALS: BP 120/62
[2016-08-31 06:36] VITALS: BP 124/72
--- NOTE | 2016-08-31 07:17 | PN- Housestaff ---
MAXIMILIANO DORANTES 08/31/16 0717: Subjective Follow-up For: CHF decompensation Review of Systems Constitutional: Denies: chills, diaphoresis, fever, malaise, weakness, unexplained weight loss. Objective Last 24 Hrs of Vital Signs/I&O Vital Signs Date Time Temp Pulse Resp B/P Pulse O2 O2 Flow FiO2 Ox Delivery Rate 08/31 1358 98.2 60 20 122/70 95 Nasal 2.0L Cannula 08/31 1051 97 Nasal 2.0L Cannula 08/31 0800 Nasal 2.0L Cannula 08/31 0636 97.8 56 24 124/72 93 Nasal 2.0L Cannula 08/31 0142 58 92 08/31 0000 95 Nasal 2.0L Cannula 08/30 2229 97.7 65 20 120/62 94 Nasal 2.0L Cannula 08/30 2032 70 100/64 08/30 1922 95 Nasal 2.0L Cannula 08/30 1600 Nasal 2.0L Cannula Intake & Output 08/31 1600 08/31 0800 08/31 0000 Intake Total 480 240 480 Output Total 250 650 675 Balance 230 -410 -195 Intake, Oral 480 240 480 Number 1 Bowel Movements Output, Urine 250 650 675 Patient 161 lb Weight Physical Exam General Appearance: Alert, Oriented X3, Cooperative, No Acute Distress Current Medications: Current Medications Sig/Sherron Start time Last Medication Dose Route Stop Time Status Admin Acetaminophen 650 MG Q4P PRN 08/25 1630 AC PO Albuterol Sulfate 3 ML BID 08/25 2200 AC 08/31 INH 1048 Albuterol Sulfate 3 ML TID PRN 08/25 1400 AC 08/27 INH 1453 Allopurinol 300 MG DAILY 08/25 1355 AC 08/31 PO 0919 Aspirin 81 MG DAILY 08/26 1000 AC 08/31 PO 0919 Budesonide/ 2 PUF BID 08/25 1356 AC 08/31 Formoterol Fumarate INH 0920 Diclofenac Sodium 1 VICENTA DAILY PRN 08/25 1445 AC TOP Escitalopram Oxalate 20 MG DAILY 08/25 1355 AC 08/31 PO 0919 Finasteride 5 MG AT BEDTIME 08/27 2230 AC 08/30 PO 2032 Furosemide 40 MG 7:30 AM, & 4:30 PM 08/27 1630 AC 08/31 PO 0657 Multivitamins 1 TAB DAILY 08/25 1357 AC 08/31 PO 0919 Oxycodone HCl 5 MG Q6P PRN 08/25 1400 AC 08/30 PO 1304 Polyethylene Glycol 17 GM DAILY PRN 08/25 1415 AC 08/29 PO 0831 Potassium Chloride 20 MEQ BID 08/26 1000 AC 08/31 PO 0919 Tamsulosin HCl 0.4 MG AT BEDTIME 08/25 2200 AC 08/30 PO 2032 Trazodone HCl 50 MG QPM PRN 08/30 2330 AC 08/30 PO 2318 Trazodone HCl 50 MG QPM PRN 08/25 1400 DC 08/26 PO 0020 Assessment/Plan Assessment: 76-year-old gentleman with past medical history significant for 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 Plan CHF exacerbation * Strict ins and outs control; maintain negative fluid balance * Continue by mouth Lasix 40 mg twice a day * Christina O2 as tolerated * TRC/nebs exafjc-hyf-oixan as needed * Symbicort 2 puff twice a day * Proventil 3 mL 3 times a day as needed * short course steroid with prednisone 40 mg po x 5 days * Pulmonology recommendation * Received 1 unit of PRBC; today 8.2/24.3 * Target Hgb is >8 mg/dl * In case of worsening respiratory status watch for the fluid overload * Hem/oncology recommendation-will follow-up with the patient as an outpatient #2 chronic pain syndrome * Tylenol 650 mg every 6 as needed for mild pain * Roxicodone 5 mg every 6 as needed for severe pain * Voltran gel #3 gout Allopurinol 300 mg by mouth daily #4 BPH and incontinence * Continue Flomax 0.4 mg by mouth at bedtime * Continue finasteride 5 mg by mouth at bedtime #5 leukocytosis and thrombocytopenia-in the setting of pericellular leukemia- stable #6 atrial fibrillation not on anticoagulation-continue aspirin #7 Generalized weakness and high risk of fall * D/C to STR on heart healthy diet dvt ppx ALPS DNR/DNI Problem List: 1. CHF (congestive heart failure) 2. Dependent edema 3. Dyspnea 4. CLL (chronic lymphocytic leukemia) Pain Ratin Pain Location: back Pain Goal: Pain 4 or less Pain Plan: oxycodone Tomorrow's Labs & Rationales: none DARIN LERMA MD 08/31/16 1239: Attending MD Review Statement Attending Statement Attending MD Statement: examined this patient, discuss w/resident/PA/SENIOR MANUFACTURING TECHNICIAN, agreed w/resident/PA/SENIOR MANUFACTURING TECHNICIAN, discussed with family, reviewed EMR data (avail), discussed with nursing, discussed with case mgmt, reviewed images, amended to note Attending Assessment/Plan: Patient seen and examined, denies any complaints. Patient denies any shortness of breath or any aches or pains. He's on oral Lasix. He is awaiting placement in rehabilitation. Today there is a bed available at [facility] and patient is medically stable for discharge to rehabilitation today. Discussed with his at bedside.
[2016-08-31 13:58] VITALS: BP 122/70
--- NOTE | 2016-08-31 14:22 | PN- Cardiology ---
See Addendum Subjective Subjective: The patient continues to have intermittent cough. He is persistent bilateral lower extremity edema. No chest pain. No palpitations. No diaphoresis. No dizziness. Objective Vital Signs and I&Os Vital Signs Date Time Temp Pulse Resp B/P Pulse O2 O2 Flow FiO2 Ox Delivery Rate 08/31 1358 98.2 60 20 122/70 95 Nasal 2.0L Cannula 08/31 1051 97 Nasal 2.0L Cannula 08/31 0800 Nasal 2.0L Cannula 08/31 0636 97.8 56 24 124/72 93 Nasal 2.0L Cannula 08/31 0142 58 92 08/31 0000 95 Nasal 2.0L Cannula 08/30 2229 97.7 65 20 120/62 94 Nasal 2.0L Cannula 08/30 2032 70 100/64 08/30 1922 95 Nasal 2.0L Cannula 08/30 1600 Nasal 2.0L Cannula Intake & Output 08/31 1600 08/31 0800 08/31 0000 08/30 1600 08/30 0800 08/30 0000 Intake Total 240 480 300 0 Output Total 150 650 675 100 400 Balance -150 -410 -195 -100 300 -400 Intake, Oral 240 480 300 0 Number 1 1 Bowel Movements Output, Urine 150 650 675 100 400 Patient 161 lb 218 lb 160 lb Weight Physical Exam: Gen: NAD HEENT: normal Lungs: Scattered rales bilaterally, normal resp. effort Heart: Irregularly irregular, S1, S2, no murmurs Abdomen: Soft, nontender, no masses Extremities: 1-2+ edema Neuro: Alert and oriented x 3, cranial nerves intact Current Medications: Current Medications Sig/Sherron Start time Last Medication Dose Route Stop Time Status Admin Acetaminophen 650 MG Q4P PRN 08/25 1630 AC PO Albuterol Sulfate 3 ML BID 08/25 2200 AC 08/31 INH 1048 Albuterol Sulfate 3 ML TID PRN 08/25 1400 AC 08/27 INH 1453 Allopurinol 300 MG DAILY 08/25 1355 AC 08/31 PO 0919 Aspirin 81 MG DAILY 08/26 1000 AC 08/31 PO 0919 Budesonide/ 2 PUF BID 08/25 1356 AC 08/31 Formoterol Fumarate INH 0920 Diclofenac Sodium 1 VICENTA DAILY PRN 08/25 1445 AC TOP Escitalopram Oxalate 20 MG DAILY 08/25 1355 AC 08/31 PO 0919 Finasteride 5 MG AT BEDTIME 08/27 2230 AC 08/30 PO 2032 Furosemide 40 MG 7:30 AM, & 4:30 PM 08/27 1630 AC 08/31 PO 0657 Multivitamins 1 TAB DAILY 08/25 1357 AC 08/31 PO 0919 Oxycodone HCl 5 MG Q6P PRN 08/25 1400 AC 08/30 PO 1304 Polyethylene Glycol 17 GM DAILY PRN 08/25 1415 AC 08/29 PO 0831 Potassium Chloride 20 MEQ BID 08/26 1000 AC 08/31 PO 0919 Tamsulosin HCl 0.4 MG AT BEDTIME 08/25 2200 AC 08/30 PO 2032 Trazodone HCl 50 MG QPM PRN 08/30 2330 AC 08/30 PO 2318 Trazodone HCl 50 MG QPM PRN 08/25 1400 DC 08/26 PO 0020 Results Last 48 Hrs of Labs/Mics: Laboratory Tests 08/30/16 0634: Anion Gap 8, Estimated GFR > 60, BUN/Creatinine Ratio 24.4, Magnesium 2.1, CBC w Diff MAN DIFF ORDERED, RBC 2.49 L, MCV 97.6 H, MCH 31.6 H, RDW 24.4 H, MPV 8.3, Gran % 9.8 L, Lymphocytes % 58.7 H, Monocytes % 31.5 H, Eosinophils % 0, Basophils % 0 L, Absolute Granulocytes 12.8 H, Segmented Neutrophils 5 L, Absolute Lymphocytes 77.1 H, Lymphocytes 90 H, Monocytes 5, Absolute Monocytes 41.5 H, Absolute Eosinophils 0, Absolute Basophils 0, Nucleated RBCs 1 H, Platelet Estimate DECREASED, Polychromasia 1+, Hypochromic-Microcytic 1+, Poikilocytosis FEW, Anisocytosis 1+, Ovalocytes 2+, PUBS MCHC 32.4 L Assessment/Plan Assessment/Plan Assessment: 1. CLL 2. COPD 3. Acute Exacerbation, improving on Lasix Plan: * The patient is planned for discharge to short-term rehabilitation today. * Continue the Lasix. * Electrolytes should be rechecked in one week at rehabilitation. * Follow up with Dr. Gomez in one week. Continue telemetry? Not applicable
[2016-08-31 15:55] VITALS: BP 122/70
== END 2016-08-31 17:00 | DRG 291 ==
LOC: ENRESERVTM → ENRESERVDT → ERH 10:45 → ENPENDDIS 12:40 → 1NO 12:40 → ERHI 12:40 → 2NA 12:40 → 1NO 16:34 → 2NA 08-26 20:42
PROVIDERS: Emergency Medicine; Internal Medicine; Student in an Organized Health Care Education/Training Program; ADMIT Internal Medicine
PROC: 5A09357 Assistance with Respiratory Ventilation, Less than 24 Consecutive Hours, Continuous Positive Airway Pressure (ICD-10-PCS; principal; 2016-08-26)
PROC: 30233N1 Transfusion of Nonautologous Red Blood Cells into Peripheral Vein, Percutaneous Approach (ICD-10-PCS; 2016-08-26)
DX: I11.0 Hypertensive heart disease with heart failure (principal); J96.20 Acute and chronic respiratory failure, unspecified whether with hypoxia or hypercapnia; C91.40 Hairy cell leukemia not having achieved remission; D69.6 Thrombocytopenia, unspecified; E87.2 Acidosis; J44.9 Chronic obstructive pulmonary disease, unspecified; I50.33 Acute on chronic diastolic (congestive) heart failure; I48.2 Chronic atrial fibrillation; G47.33 Obstructive sleep apnea (adult) (pediatric); G89.4 Chronic pain syndrome; M10.9 Gout, unspecified; N40.1 Benign prostatic hyperplasia with lower urinary tract symptoms; N39.498 Other specified urinary incontinence; I87.2 Venous insufficiency (chronic) (peripheral); D64.9 Anemia, unspecified
CPT/HCPCS: 1NP; 2NAP; 36415; 81001; 82436; 86920; 87040; 87070; 87804; 87804-59; 93005; 93010; 96374; 97110-GO; 97112-GO; 97116-GO; 97162-GP; 97530-GO; J1940; J3490; J7512; P9016

== ENCOUNTER 2016-09-01 16:05 | Emergency (ER) | payer OTHER ==
[~2016-09-01 16:05] MED LIST changes: +DULERA 200 MCG/13 GM INH
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
[2016-09-01 17:15] LABS: MEAN PLATELET VOLUME 8.2 FL (7.4-10.4)
[2016-09-01 17:21] LABS: ABSOLUTE BASOPHIL COUNT 2.2 /CUMM (0.0-0.2); ABSOLUTE EOSINOPHIL COUNT 0.2 /CUMM (0.0-0.7); ABSOLUTE GRANULOCYTE CT 80.7 /CUMM (1.4-6.5); ABSOLUTE LYMPH COUNT 45.9 /CUMM (1.2-3.4); ABSOLUTE MONOCYTE COUNT 26.7 /CUMM (0.10-0.60); BASOPHIL % 1.4 % (0.0-2.0); EOSINOPHIL % 0.1 % (0-5); HEMATOCRIT 25.7 % (42-52); MEAN CORPUSCULAR HGB 31.4 PG (27.0-31.0); MEAN CORPUSCULAR HGB CONC 32.3 G/DL (33.0-37.0); MEAN CORPUSCULAR VOLUME 97.2 FL (80.0-94.0); PLATELET COUNT 103 /CUMM (130-400); RBC DISTRIBUTION WIDTH 24.3 % (11.5-14.5); RED BLOOD CELL CT 2.64 /CUMM (4.70-6.10)
[2016-09-01 17:24] LABS: GRANULOCYTE % 51.9 % (42.2-75.2); WHITE BLOOD CELL COUNT 155.4 /CUMM (4.8-10.8)
--- NOTE | 2016-09-01 18:42 | RADIOLOGY REPORT ---
EXAMINATION: XR CHEST CLINICAL INFORMATION: Diminished lung sounds. COMPARISON: Chest x-ray 08/26/2016 TECHNIQUE: Two-view chest FINDINGS: Heart size is enlarged. No pulmonary vascular congestion. Lungs are clear. No pleural effusion. No pneumothorax. Multilevel endplate degenerative changes of the dorsal spine. IMPRESSION: No acute abnormality of the chest.
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
[2016-09-01 21:45] VITALS: BP 127/65
== END 2016-09-01 22:13 ==
LOC: ERH 16:05
PROVIDERS: Physician Assistant
DX: F43.20 Adjustment disorder, unspecified (principal)
CPT/HCPCS: 80307; 81001; G0463; G0480

== ENCOUNTER 2016-09-04 22:19 | Emergency (ER) | payer OTHER ==
[~2016-09-04] VITALS: Ht 195.6 cm; Wt 109.8 kg
--- NOTE | 2016-09-04 22:46 | ED MVC/FALL/TRAUMA COMPLAINT ---
See Addendum History of Present Illness General Chief Complaint: Fall Stated Complaint: BIBA FALL Source: patient, old records Exam Limitations: dementia Vital Signs & Intake/Output Vital Signs & Intake/Output ED Intake and Output 09/06 0000 09/05 1200 Intake Total 30 Output Total Balance 30 Intake, Oral 30 Allergies Coded Allergies: Tetanus Vaccines and Toxoid (ANAPHYLAXIS 07/13/16) Horse/Equine Containing Products (Mild, ANAPHYLAXIS 07/13/16) THEY USED THIS TO MAKE PCN YEARS AGO, BUT THEY DO NOT USE THIS ANYMORE. Reconcile Medications Albuterol Sulfate 2.5 MG/3 ML (0.083 %) VIAL.NEB 1 Vial INH/MELANIA TID PRN COPD (Reported) Allopurinol 300 MG TAB 1 TAB PO DAILY GOUT (Reported) Aspirin (Children's Aspirin) 81 MG TAB 1 TAB PO DAILY blood thinner Escitalopram Oxalate (Lexapro) 20 MG TABLET 1 TAB PO DAILY Depression ( Reported) Finasteride (Propecia) 5 MG TAB 5 MG PO AT BEDTIME BPH (Reported) Furosemide (Lasix) 40 MG TABLET 1 TAB PO BID CHF (Reported) Meloxicam 15 MG TAB 1 TAB PO DAILY ANTI-INFLAMMATORY (Reported) Mometasone/Formoterol (Dulera 200 Mcg/5 Mcg Inhaler) 200 MCG-5 MCG/ACTUATION HFA.AER.AD 2 PUF INH BID BREATHING PROBLEMS (Reported) Multivitamin (Multiple Vitamins) (Unknown Strength) TAB 1 TAB PO DAILY SUPPLEMENT (Reported) Oxycodone HCl 5 MG TABLET 1 TAB PO Q6 PRN Back pain (Reported) Potassium Chloride [address] MEQ PO DAILY SUPPLEMENT (Reported) Tamsulosin Hydrochloride (Flomax) 0.4 MG CAP 1 CAP PO AT BEDTIME PROSTATE ( Reported) Trazodone HCl 50 MG TABLET 1 TAB PO QPM PRN Insomnia (Reported) Triage Note: PT [facility] FROM [facility] FOR FALL. PER EMS BEDBOUND PT GOT OOB AND WAS WALKING AROUND NAKED. PER EMS UPON ARRIVAL PT WAS ON THE FLOOR. PT A/O PERSON AND PLACE. PT DENIES HITTING HEAD AND LOC. PT DENIES PAIN. PT PRESENTS WITH BILAT LE SWELLING. Triage Nurses Notes Reviewed? yes Onset: Abrupt Duration: day(s): (1), constant Timing: recent history Severity: mild Severity Numbers: 1 Injuries/Fall Location: no injury Method of Injury: fall Loss of Consciousness: unsure No Modifying Factors: none Associated Symptoms: denies HPI: 76 year old male with past medical history significant for chf (EF 55-60%), Afib on aspirin, COPD leukemia gastric bypass, gout, mood disorder presents after he had an unwitnessed fall and was found down on the floor at the [facility] just prior to arrival. On arrival the patient offers no complaints. He was recently seen here for an adjustment disorder. The patient denies headache neck or back pain no extremity pain chest pain shortness of breath abdominal pain nausea vomiting or diarrhea (FELICITA DAY) Past History Travel History Traveled to [facility] [place] past 21 day No Medical History Any Pertinent Medical History? see below for history Neurological: NONE EENT: glaucoma, macular degeneration Cardiovascular: AFIB, CHF, hypertension Respiratory: COPD, obstructive sleep apnea, USES CPAP Gastrointestinal: SPLENOMEGALY Hepatic: NONE Renal: NONE Musculoskeletal: sciatica, ARTHRITIS Psychiatric: NONE Endocrine: NONE Blood Disorders: NONE Cancer(s): non-hodgkin lymphoma DIRECTOR FUNERAL/Reproductive: NONE History of MRSA: Yes History of VRE: No History of CDIFF: No Surgical History Surgical History: cholecystectomy, knee replacement, GASTRIC BYPASS SURGERY Psychosocial History Who do you live with Other (see notes) Services at Home Oxygen What is your primary language [place] Tobacco Use: Quit >30 days ago Family History Family History, If Any: MOTHER FH: brain cancer Hx Contributory? No (FELICITA ADY) Review of Systems Review of Systems Constitutional: Reports: see HPI. All Other Systems: Reviewed and Negative Comments Review of systems: See HPI, All other systems negative. Constitutional, no chills no fever, no malaise HEENT: No visual changes no sore throat no congestion Cardiovascular: No chest pain , no palpitation Skin, no rashes, no change in skin Respiratory: No dyspnea no cough no sputum GI: No nausea no vomiting, no diarrhea, : No hematuria, no frequency, no discharge Muscle skeletal: No joint pain, no joint swelling, no back pain, no neck pain, Neurologic: No numbness no headache Psych: No stress Heme/endocrine: No bruising no bleeding Immunology: No lymphadenopathy, (FELICITA DAY) Physical Exam Physical Exam General Appearance: well developed/nourished, awake Comments: Well-developed well-nourished person in no acute distress HEENT: Normal EENT exam; PERRL, EOMI, HEAD is atraumatic. moist mucous membranes. Neck: Supple, nontender normal range of motion without Back: Nontender, no CVA tenderness. Full range of motion Cardiovascular: Regular rate and rhythms no murmurs rubs Respiratory: Chest is atraumatic nontender No respiratory distress. Patient speaking in full complete sentences. Breath sounds clear to auscultation bilaterally: NO W/R/R Abdomen: Soft, nontender nondistended, no appreciable organomegaly. Normal bowel sounds. No rebound/guarding, No appreciable enlargement of the abdominal aorta, No ascites. Extremity: 3+ bilateral lower extremity edema, full range of motion of extremities, normal and equal pulses bilaterally, 5 out of 5 strength noted to bilateral upper and lower extremities Neuro: Alert oriented x1, motor sensory normal, There were no obvious focal neurologic abnormalities. Skin: No appreciable rash on exposed skin, skin is warm and dry. Psych: Mood and affect is normal, memory and judgment is normal. Core Measures ACS in differential dx? Yes Severe Sepsis Present: No Septic Shock Present: No (CHESTER HERNANDEZ,FELICITA) Progress Differential Diagnosis: abd injury, C/T/L spine injury, ext injury, ICH, pelvis injury, pnemothorax, spinal cord injury Plan of Care: Orders Procedure Date/time Status TROPONIN LEVEL 09/04 2242 Complete COMPREHENSIVE METABOLIC PANEL 09/04 2242 Complete CREATINE PHOSPHOKINASE 09/04 2242 Complete CBC WITHOUT DIFFERENTIAL 09/04 2242 Complete EKG 09/04 2242 Active Current Medications Sig/Sherron Start time Last Medication Dose Stop Time Status Admin Ondansetron HCl 4 MG ONCE ONE 09/04 2299 CAN (Zofran) 09/04 2301 Laboratory Tests 09/04/16 2321: Anion Gap 12, Estimated GFR 54 L, BUN/Creatinine Ratio 29.2 H, Glucose 99, Calcium 8.1 L, Total Bilirubin 0.9, AST 25, ALT 25, Alkaline Phosphatase 70, Creatine Kinase < 20 L, Troponin I 0.02, Total Protein 5.4 L, Albumin 2.7 L, Globulin 2.7, Albumin/Globulin Ratio 1.0 L, CBC w Diff MAN DIFF ORDERED, RBC 2.45 L, MCV 98.6 H, MCH 31.4 H, RDW 25.5 H, MPV 8.2, Segmented Neutrophils 2 L, Lymphocytes 95 H, Monocytes 3, Nucleated RBCs 2 H, Platelet Estimate DECREASED, Polychromasia 1+, Hypochromic-Microcytic 2+, Poikilocytosis 2+, Anisocytosis 2+, Microcytic Cells 1+, Macrocytic Cells 2+, Target Cells FEW, Ovalocytes 1+, Stomatocytes FEW, Blane Cells FEW, Elliptocytes 1+, PUBS MCHC 31.8 L Labs ordered old records reviewed CAT scan ordered Patient's labs including his H&H and elevated white blood cell count are at his baseline. Despite CT findings patient does not clinically have evidence to suggest pneumonia or infection Patient clinically appears well discussed with him at length of his CAT scan and lab results. Case was discussed with Dr. Arambula. am[facility] was called to bring pt home (CHESTER HERNANDEZ,FELICITA) Diagnostic Imaging: Viewed by Me: CT Scan. Discussed w/RAD: CT Scan. Radiology Impression: PATIENT: GARTH HE PRESENT AGE: 76 PATIENT ACCOUNT NO: [id number] : 41 LOCATION: [facility] ORDERING PHYSICIAN: FELICITA HERNANDEZ SERVICE DATE: 09/04/16 EXAM TYPE: CAT - CT ABD & PELVIS W/O IV CONTRAS; CT CHEST WO IV CONTRAST EXAMINATION: CT CHEST, ABDOMEN AND PELVIS WITHOUT CONTRAST CLINICAL INFORMATION: Trauma. Fall. COMPARISON: None. TECHNIQUE: Volumetric axial images obtained through the chest abdomen and pelvis without contrast. DLP: 1311.28 mGy-cm. FINDINGS: CT CHEST: Lungs: Pleural thickening and/or subsegmental atelectasis along the minor fissure and major fissure of the right upper lobe. There is a small patchy opacity at the dependent left lung base at the left posterior costophrenic angle. Given history of trauma this could be a region of contusion. There is no associated rib fracture or hematoma of the chest wall. Mediastinum: The heart size is enlarged. There is calcification of the coronary arteries and the thoracic aorta. There is a small pericardial effusion measuring 2 cm posteriorly. No mediastinal hematoma Pleura: There is no pleural effusion. No pleural mass or thickening. Axilla: No lymphadenopathy. CT ABDOMEN AND PELVIS: LIVER, GALLBLADDER, AND BILIARY TREE: The liver is normal in size, shape, and attenuation. No focal hepatic lesion or biliary ductal dilatation is present. Status post cholecystectomy. No bile duct dilatation. PANCREAS: No acute change of the pancreas. No mass. No pancreatic duct dilatation. SPLEEN: The spleen is enlarged. Spleen measures 29 cm superior inferior. ADRENAL GLANDS: Adrenal glands are normal in size. No focal mass. KIDNEYS AND URETERS: Left kidney is displaced medially by the enlarged spleen. No hydronephrosis. There is a cortical cyst pedunculated at the posterior midpole of the right kidney measuring 2.2 cm. Also a right renal Cortical cyst anteriorly measuring 4.8 cm. There is a 3.3 cm cortical cyst at the mid upper pole of the left kidney. BLADDER: Unremarkable. GASTROINTESTINAL TRACT: Status post surgery. Surgical suture lines at the stomach and involving small bowel loops. No dilated bowel. Scattered stool in the colon. The appendix is not identified. MESENTERY: No focal inflammation. No free fluid. No free air. ABDOMINAL WALL: Surgical clips at the anterior abdominal wall. No ventral wall hernia. LYMPH NODES: Normal. VASCULAR: Atherosclerotic vascular wall calcifications of aorta and iliac vessels. 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 PELVIC VISCERA: Unremarkable. OSSEOUS STRUCTURES: No acute change. Multilevel degenerative spondylosis of the spine with disc height narrowing and endplate spurs. No fracture. IMPRESSION: 1. Small patchy lung opacity at the left posterior costophrenic angle. Could be infiltrate or contusion given history of trauma. Correlate with history. No chest wall fluid collection or rib fracture. No pneumothorax. 2. No acute abnormality of the abdomen or pelvis. 3. Cardiomegaly. Pericardial effusion. 4. Massive splenomegaly. 5. Status post cholecystectomy. 6. Status post gastrointestinal surgery. No acute change of the bowel. DICTATED BY: TAMEKA JOHNSON MD DATE/TIME DICTATED:09/04/162311 PACKAGE COLLECTOR:ULISES DATE/TIME TRANSCRIBED:09/04/162311 CONFIDENTIAL, DO NOT COPY WITHOUT APPROPRIATE AUTHORIZATION. <Electronically signed in Other Vendor System> SIGNED BY: TAMEKA JOHNSON MD 09/04/16 6086, PATIENT: GARTH HE PRESENT AGE: 76 PATIENT ACCOUNT NO: [id number] : 41 LOCATION: [facility] ORDERING PHYSICIAN: FELICITA HERNANDEZ SERVICE DATE : 09/04/16 EXAM TYPE: CAT - CT CERV SPINE WO IV CONTRAST; CT HEAD WO IV CONTRAST EXAMINATION: CT HEAD WITHOUT CONTRAST CT CERVICAL SPINE WITHOUT CONTRAST CLINICAL INFORMATION: Trauma. COMPARISON: MRI of head 06/14/2016 TECHNIQUE: Imaging was performed from the skull base to vertex without intravenous administration of contrast. In addition, helical noncontrast CT imaging was acquired through the cervical spine and source images were reviewed along with axial reconstructions and sagittal and coronal MPRs. DLP: 125.92 mGy- cm FINDINGS: HEAD: No intracranial mass, hemorrhage, or midline shift is visualized. The ventricles and sulci are age-appropriate. There is vascular calcification of the internal carotid arteries at the carotid artery siphon and vertebral arteries bilaterally. No extra-axial collections are identified. The paranasal sinuses and mastoid air cells are well aerated. CERVICAL SPINE: There is no evidence of acute cervical spine fracture no prevertebral soft tissue swelling. There is degenerative spondylosis. Cervical disc height narrowing from C3-C4 disc level to the C6-C7 disc level with endplate spurs and multilevel degenerative changes at the facet joints. No soft tissue abnormality of the neck. Limited assessment of the lung apices is unremarkable. IMPRESSION: 1. No acute intracranial pathology. 2. No CT evidence of acute cervical spine fracture or traumatic subluxation DICTATED BY: TAMEKA JOHNSON MD DATE/TIME DICTATED:2303 PACKAGE COLLECTOR:ULISES DATE/TIME TRANSCRIBED:09/04/162303 CONFIDENTIAL, DO NOT COPY WITHOUT APPROPRIATE AUTHORIZATION. <Electronically signed in Other Vendor System> SIGNED BY: TAMEKA JOHNSON MD 09/04/16 6015 Initial ED EKG: A. fib at 60, no acute ST segment changes normal axis Prior EKG: unchanged (08/25/16) (FELICITA DAY) Departure Departure Time of Disposition: 002 Disposition: HOME OR SELF CARE Condition: Stable Clinical Impression Primary Impression: Fall Referrals: DAYANARA LOVE DO (PCP/Family) Departure Forms: Customer Survey General Discharge Information (FELICITA DAY) PA/WOOD BOX MAKER Co-Sign Statement Statement: ED Attending supervision documentation- [X] I saw and evaluated the patient. I have also reviewed all the pertinent lab results and diagnostic results. I agree with the findings and the plan of care as documented in the PA's/WOOD BOX MAKER's documentation. [] I have reviewed the ED Record and agree with the PA's/WOOD BOX MAKER's documentation. [] Additions or exceptions (if any) to the PAs/WOOD BOX MAKER's note and plan are summarized below: [] (GEORGE BRIGHT,CRISTOPHER Tucekr)
--- NOTE | 2016-09-04 23:15 | CT SCAN REPORT ---
EXAMINATION: CT HEAD WITHOUT CONTRAST CT CERVICAL SPINE WITHOUT CONTRAST CLINICAL INFORMATION: Trauma. COMPARISON: MRI of head 06/14/2016 TECHNIQUE: Imaging was performed from the skull base to vertex without intravenous administration of contrast. In addition, helical noncontrast CT imaging was acquired through the cervical spine and source images were reviewed along with axial reconstructions and sagittal and coronal MPRs. DLP: 125.92 mGy-cm FINDINGS: HEAD: No intracranial mass, hemorrhage, or midline shift is visualized. The ventricles and sulci are age-appropriate. There is vascular calcification of the internal carotid arteries at the carotid artery siphon and vertebral arteries bilaterally. No extra-axial collections are identified. The paranasal sinuses and mastoid air cells are well aerated. CERVICAL SPINE: There is no evidence of acute cervical spine fracture no prevertebral soft tissue swelling. There is degenerative spondylosis. Cervical disc height narrowing from C3-C4 disc level to the C6-C7 disc level with endplate spurs and multilevel degenerative changes at the facet joints. No soft tissue abnormality of the neck. Limited assessment of the lung apices is unremarkable. IMPRESSION: 1. No acute intracranial pathology. 2. No CT evidence of acute cervical spine fracture or traumatic subluxation
--- NOTE | 2016-09-04 23:26 | CT SCAN REPORT ---
EXAMINATION: CT CHEST, ABDOMEN AND PELVIS WITHOUT CONTRAST CLINICAL INFORMATION: Trauma. Fall. COMPARISON: None. TECHNIQUE: Volumetric axial images obtained through the chest abdomen and pelvis without contrast. DLP: 1311.28 mGy-cm. FINDINGS: CT CHEST: Lungs: Pleural thickening and/or subsegmental atelectasis along the minor fissure and major fissure of the right upper lobe. There is a small patchy opacity at the dependent left lung base at the left posterior costophrenic angle. Given history of trauma this could be a region of contusion. There is no associated rib fracture or hematoma of the chest wall. Mediastinum: The heart size is enlarged. There is calcification of the coronary arteries and the thoracic aorta. There is a small pericardial effusion measuring 2 cm posteriorly. No mediastinal hematoma Pleura: There is no pleural effusion. No pleural mass or thickening. Axilla: No lymphadenopathy. CT ABDOMEN AND PELVIS: LIVER, GALLBLADDER, AND BILIARY TREE: The liver is normal in size, shape, and attenuation. No focal hepatic lesion or biliary ductal dilatation is present. Status post cholecystectomy. No bile duct dilatation. PANCREAS: No acute change of the pancreas. No mass. No pancreatic duct dilatation. SPLEEN: The spleen is enlarged. Spleen measures 29 cm superior inferior. ADRENAL GLANDS: Adrenal glands are normal in size. No focal mass. KIDNEYS AND URETERS: Left kidney is displaced medially by the enlarged spleen. No hydronephrosis. There is a cortical cyst pedunculated at the posterior midpole of the right kidney measuring 2.2 cm. Also a right renal Cortical cyst anteriorly measuring 4.8 cm. There is a 3.3 cm cortical cyst at the mid upper pole of the left kidney. BLADDER: Unremarkable. GASTROINTESTINAL TRACT: Status post surgery. Surgical suture lines at the stomach and involving small bowel loops. No dilated bowel. Scattered stool in the colon. The appendix is not identified. MESENTERY: No focal inflammation. No free fluid. No free air. ABDOMINAL WALL: Surgical clips at the anterior abdominal wall. No ventral wall hernia. LYMPH NODES: Normal. VASCULAR: Atherosclerotic vascular wall calcifications of aorta and iliac vessels. 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 PELVIC VISCERA: Unremarkable. OSSEOUS STRUCTURES: No acute change. Multilevel degenerative spondylosis of the spine with disc height narrowing and endplate spurs. No fracture. IMPRESSION: 1. Small patchy lung opacity at the left posterior costophrenic angle. Could be infiltrate or contusion given history of trauma. Correlate with history. No chest wall fluid collection or rib fracture. No pneumothorax. 2. No acute abnormality of the abdomen or pelvis. 3. Cardiomegaly. Pericardial effusion. 4. Massive splenomegaly. 5. Status post cholecystectomy. 6. Status post gastrointestinal surgery. No acute change of the bowel.
[2016-09-04 23:34] LABS: HEMATOCRIT 24.1 % (42-52); MEAN CORPUSCULAR HGB 31.4 PG (27.0-31.0); MEAN CORPUSCULAR HGB CONC 31.8 G/DL (33.0-37.0); MEAN CORPUSCULAR VOLUME 98.6 FL (80.0-94.0); MEAN PLATELET VOLUME 8.2 FL (7.4-10.4); PLATELET COUNT 76 /CUMM (130-400); RBC DISTRIBUTION WIDTH 25.5 % (11.5-14.5); RED BLOOD CELL CT 2.45 /CUMM (4.70-6.10)
[2016-09-04 23:47] LABS: WHITE BLOOD CELL COUNT 159.8 /CUMM (4.8-10.8)
[2016-09-05 01:27] VITALS: BP 108/69
== END 2016-09-05 01:29 ==
LOC: ERH 22:19
PROVIDERS: Physician Assistant Medical
DX: Z04.3 Encounter for examination and observation following other accident (principal); I50.9 Heart failure, unspecified; I10 Essential (primary) hypertension; Z87.891 Personal history of nicotine dependence; F03.90 Unspecified dementia, unspecified severity, without behavioral disturbance, psychotic disturbance, mood disturbance, and anxiety; W19.XXXA Unspecified fall, initial encounter
CPT/HCPCS: 74176; 93005; 93010